=== PATIENT | male | born 1950 | race African-American/Black ===

== ENCOUNTER 2020-09-17 14:38 | Inpatient (IN) | payer OTHER ==
[~2020-09-17] VITALS: Ht 190.5 cm; Wt 90.7 kg
[2020-09-17] MEDS ORDERED: IV NS 0.9% 1,000 ML BAG IV ONE ×2 (15:00→17:30)
[2020-09-17] MEDS ORDERED: CLON1PAT2 TD (15:13)
[2020-09-17] MEDS ORDERED: METO25TA20 GT (15:13)
[2020-09-17] MEDS ORDERED: LACT10SO3 GT (15:13)
[2020-09-17] MEDS ORDERED: CHLO25TA2 GT (15:13)
[2020-09-17] MEDS ORDERED: ASCO-352 GT (15:13)
[2020-09-17] MEDS ORDERED: HYDR-4076 GT (15:13)
[2020-09-17] MEDS ORDERED: LACT100027 GT (15:13)
[2020-09-17] MEDS ORDERED: ZINC1CAP3 GT (15:13)
[2020-09-17] MEDS ORDERED: TRAM50TA2 GT (15:13)
[2020-09-17] MEDS ORDERED: FAMO-131 GT (15:13)
[2020-09-17] MEDS ORDERED: CHLO473M5 MM (15:13)
[2020-09-17] MEDS ORDERED: LISI20TA30 GT (15:13)
[2020-09-17] MEDS ORDERED: METF-440 GT (15:13)
[2020-09-17] MEDS ORDERED: IPRA4AER IH (15:13)
[2020-09-17] MEDS ORDERED: ATOR40TA GT (15:13)
[2020-09-17] MEDS ORDERED: AMIN30LI2 GT (15:13)
[2020-09-17] MEDS ORDERED: NA P133E RC (15:13)
[2020-09-17] MEDS ORDERED: ONDA4TAB5 GT (15:13)
[2020-09-17] MEDS ORDERED: HEPA50007 SQ (15:13)
[2020-09-17] MEDS ORDERED: CLON0.2T GT (15:13)
[2020-09-17] MEDS ORDERED: DOCU50LI GT (15:13)
[2020-09-17] MEDS ORDERED: MINO2.5T GT (15:13)
[2020-09-17] MEDS ORDERED: BISA10SU11 RC (15:13)
[2020-09-17] MEDS ORDERED: ACET-2605 GT (15:13)
[2020-09-17] MEDS ORDERED: ACET-868 GT (15:13)
[2020-09-17] MEDS ORDERED: MAGN400O6 GT (15:13)
[2020-09-17] MEDS ORDERED: NIFE20CA GT (15:13)
[2020-09-17] MEDS ORDERED: ASPI-869 GT (15:13)
[2020-09-17 15:20] LABS: BASOPHILS # (AUTO) 0.1 K/uL (0.0-0.2); BASOPHILS % (AUTO) 0.6 % (0.0-2.0); EOSINOPHILS % (AUTO) 1.3 % (0.0-6.0); HEMATOCRIT 32 % (39-51); HEMOGLOBIN 10.4 g/dL (13.5-17.5); LYMPHOCYTES # (AUTO) 1.4 K/uL (0.8-4.8); LYMPHOCYTES % (AUTO) 13.3 % (20.0-44.0); MEAN CORPUSCULAR HGB CONC 33 g/dl (31.0-36.0); MEAN CORPUSCULAR VOLUME 86 fL (80-96); MONOCYTES # (AUTO) 1.1 K/uL (0.1-1.30); MONOCYTES % (AUTO) 11.1 % (2.0-12.0); NEUTROPHILS # (AUTO) 7.6 K/uL (1.8-8.9); NEUTROPHILS % (AUTO) 73.7 % (43.0-81.0); PLATELET COUNT (AUTO) 284 K/uL (150-450); WHITE BLOOD COUNT (AUTO) 10.4 K/uL (4.3-11.0)
--- NOTE | 2020-09-17 15:45 | NUR ---
69 years old male vent dependent, total care sent to er for abnormal lab from [facility]. Sacrum wound noted,RUE PICC line patent lab result pending.
--- NOTE | 2020-09-17 15:49 | NUR ---
CAREGIVER/FAMILY, KATERIN SOLIZ, WANTS UPDATES AT [phone]
--- NOTE | 2020-09-17 16:09 | NUR ---
PT ASSIGNED TO ROOM 104-1
[2020-09-17 16:32] LABS: BILIRUBIN,URINE NEGATIVE (NEGATIVE); COLOR,URINE YELLOW (YELLOW); LEUKOCYTE ESTERASE ,URINE NEGATIVE (NEGATIVE); NITRITE, URINE NEGATIVE (NEGATIVE); PH,URINE 5.5 (5.0-8.0); PROTEIN,URINE NEGATIVE (NEGATIVE); UGLUCOSE NEGATIVE (NEGATIVE)
[2020-09-17 16:40] LABS: THYROID STIMULATING HORMONE 2.137 uIU/mL (0.358-3.74)
[2020-09-17 16:41] LABS: BACTERIA,URINE None seen /HPF (None Seen); RBC,URINE 0-2 /HPF (0-2); SQUAMOUS EPITHELIAL CELL,UR 0-2 /HPF (None Seen); URINE AMORPHOUS URATE Few /HPF (None Seen); WBC,URINE 0-2 /HPF (0-3)
[2020-09-17 17:02] LABS: CALCIUM, SERUM 8.7 mg/dL (8.5-10.1); CREATININE 1.5 mg/dL (0.6-1.3); POTASSIUM 5.7 mmol/L (3.5-5.1)
[2020-09-17 17:07] LABS: BILIRUBIN,DIRECT 0.2 mg/dL (0.0-0.2); BILIRUBIN,TOTAL 0.4 mg/dL (0.2-1.0); TOTAL PROTEIN, SERUM 7.8 g/dL (6.4-8.2)
--- NOTE | 2020-09-17 17:39 | NUR ---
TAKEN TO CT
--- NOTE | 2020-09-17 17:55 | NUR ---
received a call from the admitting, they spoke to Rosetta DE LA ROSA and patient will be going to [facility]. Will call back for transfer info.
--- NOTE | 2020-09-17 17:59 | NUR ---
patient returns to room from ct. unstable for transfer.
--- NOTE | 2020-09-17 18:07 | NUR ---
SPOKE TO DEBORA VALENZUELA TO TALK WITH NURSE ABOUT CLINICAL INFORMATION.
--- NOTE | 2020-09-17 18:10 | NUR ---
PER ESTRELLA VALENZUELA GAVE US AUTHORIZATION FOR ADMISSION, WILL CALL OUR ADMITTING DEPARTMENT TO RELAY INFORMATION.
[2020-09-17] MEDS ORDERED: SODIUM POLYSTYRENE SULFONATE 15 G/60 ML BOTTLE GT ONE (18:30)
--- NOTE | 2020-09-17 18:42 | NUR ---
SPOKE TO DR. MATTSON REGARDING PATIENT AND HE IS MAKING PATIENT STABLE FOR TRANSPORT. ESTRELLA VALENZUELA WILL CALL BACK WITH TRANSFER INFORMATION.
--- NOTE | 2020-09-17 18:45 | NUR ---
admission cancelled, patient will transfer to [facility] awaiting for bed.
--- NOTE | 2020-09-17 20:36 | NUR ---
Roxann cast in [facility] - 09/17/20 at 2038 by [facility] CALLED FOR COVID RESULTS FAX NUMBER: [phone]
--- NOTE | 2020-09-17 20:38 | NUR ---
ALPESH GONSALEZ CALLED FOR COVID RESULTS. FAX TO: [phone]
--- NOTE | 2020-09-17 21:24 | NUR ---
WINDYID SWABBED, SENT TO LAB.
[2020-09-17 21:48] LABS: CALCIUM, SERUM 8.3 mg/dL (8.5-10.1); CREATININE 1.2 mg/dL (0.6-1.3); POTASSIUM 5.6 mmol/L (3.5-5.1)
[2020-09-17] MEDS ORDERED: IV D5/0.45 NACL 1,000 ML IV ONE (22:00)
--- NOTE | 2020-09-17 22:15 | NUR ---
Call from [employer] Worker- Rosetta. Pt ok to be admitted to [facility] under Dr Carrillo.
[2020-09-17] MEDS ORDERED: BISACODYL SUPP (10 MG) 10 MG/SUPP.RECT SUPP.RECT RC PRN (23:00)
[2020-09-17] MEDS ORDERED: DEXTROSE 50%-WATER 50 ML DISP.SYRIN IV PRN (23:00)
--- NOTE | 2020-09-17 23:00 | NUR ---
CALLED RT FOR TRANSFERED.
--- NOTE | 2020-09-17 23:00 | NUR ---
ADMIT NOTE RECEIVED PATIENT FROM ER, TRANSFERRED TO ROOM 104. PATIENT IS OBTUNDED, OPENS EYES. ON TRACH TO [facility] VENT, BASSAM #9, AC 20, TV 500, FIO2 40%, AND PEEP OF 5. O2 SAT 100%. NO SIGNS OF DISTRESS. TELE MONITOR ON, SINUS TACHYCARDIA 12O. WITH G-TUBE, CLAMPED. CARTAGENA CATH DRAINING YELLOW TO ROSANNA URINE VIA GRAVITY. NATASHA PIC LINE PATENT AND RUNNING D5W @ 100ML/HR. SKIN ASSESSMENT DONE, NOTED WITH SACRUM WOUND. ALSO NOTED WITH BILATERAL UPPER EXTREMITY EDEMA +2. BED LOCKED AND IN LOWEST POSITION. CALL LIGHT WITHIN REACH. ALL NEEDS ANTICIPATED. Addendum: 09/18/20 at 0424 by GERARD SMITH RN PATIENT ON D5 1/2 NS @ 150ML/HR, NOT ON D5W.
--- NOTE | 2020-09-17 23:12 | NUR ---
REPORT GIVEN TO GERARD QUINONEZ FOR TANMAY
[2020-09-17] MEDS ORDERED: ONDANSETRON 4 MG TAB.RAPDIS GT PRN (23:30)
[2020-09-18] VITALS: BP 131/69
[2020-09-18] MEDS ORDERED: Medication Not On Formulary EA (Ipratropium/Albuterol Sulfate (Combivent Respimat 20-100 IH SCH
[2020-09-18] MEDS ORDERED: METOPROLOL TARTRATE 50 MG TABLET GT ONE
[2020-09-18] MEDS: ACETAMINOPHEN 650 MG/20.3 ML UDC GT PRN ×2 (00:31→04:52)
[2020-09-18] MEDS: BLOOD SUGAR DIAGNOSTIC 1 EACH STRIP IN SCH ×4 (00:32→17:17)
[2020-09-18] MEDS: INSULIN REGULAR, HUMAN 100 UNIT/ML 3 ML VIAL SQ PRN ×3 (00:35→17:17)
[2020-09-18] MEDS: IPRATROPIUM NEB FS 0.5 MG/2.5 ML AMPUL.NEB IH SCH ×4 (01:30→19:53)
[2020-09-18] MEDS: ALBUTEROL FS 2.5 MG/0.5 ML VIAL.NEB NEB SCH ×4 (01:30→19:53)
[2020-09-18 04:00] VITALS: BP 119/60
[2020-09-18] MEDS: IV 1/2NS 1000 ML 1,000 ML IV PRN ×2 (04:44→13:14)
--- NOTE | 2020-09-18 05:06 | NUR ---
NOTED WITH 101.6 TEMP, TYLENOL ADMINISTERED ORDERED. COOLING MEASURES RENDERED. CALL LIGHT WITHIN REACH.
--- NOTE | 2020-09-18 06:43 | NUR ---
RN NOTE PATIENT IS OBTUNDED, OPENS EYES TO VERBAL AND TACTILE STIMULI. ON TRACH TO [facility] VENT, BASSAM #9, AC 20, TV 500, FIO2 40%, AND PEEP OF 5. O2 SAT 100%. NO SIGNS OF DISTRESS. TELE MONITOR ON, SINUS TACHYCARDIA 100'S. WITH G-TUBE, CLAMPED. CARTAGENA CATH DRAINING YELLOW TO ROSANNA URINE VIA GRAVITY OUTPUT 1400. NATASHA PICC LINE PATENT AND NOW RUNNING 1/2 NS @ 125ML/HR. BED LOCKED AND IN LOWEST POSITION. CALL LIGHT WITHIN REACH. WILL ENDORSE TO AM SHIFT. Addendum: 09/18/20 at 0647 by GERARD SMITH RN RECHECK TEMP 99.5. CONTINUE COOLING MEASURES.
--- NOTE | 2020-09-18 07:05 | NUR ---
NOTIFIED DR. TWILA OLIVEROS OF PATIENT NOTED WITH CONSISTENT PVC'S AND BUNDLE BRANCH BLOCK, HEART RATE 105 WITH NO NEW ORDERS. ALSO CLARIFIED IF DR. MATTSON WANTS TO KEEP PT NPO AND SAID YES. AND CHANGE IV FLUIDS TO 1/2 NS @ 150ML/HR. NOTED AND CARRIED OUT.
[2020-09-18 07:16] LABS: BASOPHILS % (AUTO) 0.2 % (0.0-2.0); EOSINOPHILS % (AUTO) 0.2 % (0.0-6.0); HEMATOCRIT 31 % (39-51); LYMPHOCYTES # (AUTO) 0.8 K/uL (0.8-4.8); LYMPHOCYTES % (AUTO) 6.1 % (20.0-44.0); MEAN CORPUSCULAR HGB CONC 32 g/dl (31.0-36.0); MEAN CORPUSCULAR VOLUME 87 fL (80-96); MONOCYTES # (AUTO) 1.5 K/uL (0.1-1.30); MONOCYTES % (AUTO) 10.9 % (2.0-12.0); NEUTROPHILS # (AUTO) 11.2 K/uL (1.8-8.9); NEUTROPHILS % (AUTO) 82.6 % (43.0-81.0); PLATELET COUNT (AUTO) 243 K/uL (150-450); RED BLOOD CELL COUNT(AUTO) 3.59 MIL/uL (4.5-6.0); WHITE BLOOD COUNT (AUTO) 13.5 K/uL (4.3-11.0)
--- NOTE | 2020-09-18 07:45 | NUR ---
RN NOTE PATIENT IS CURRENTLY IN BED WITH HOB AT SEMI FOWLERS POSITION. PATIENT IS OBTUNDED. PATIENT IS ON TRACH/VENT WITH NO SIGNS OF LABORED BREATHING. PATIENT'S CARTAGENA IS IN PLACE. PATIENT'S GTUBE IS IN PLACE. NATASHA PICC LINE IS PATENT AND INTACT. BED IS LOCKED IN THE LOWEST POSITION, 3 GUARD RAILS RAISED, CALL [place] WITHIN REACH, AND ALL HOSPITAL SAFETY PRECAUTIONS ARE BEING FOLLOWED. WILL CONTINUE TO MONITOR THROUGHOUT SHIFT.
[2020-09-18 07:51] LABS: CALCIUM, SERUM 7.9 mg/dL (8.5-10.1); CREATININE 1.1 mg/dL (0.6-1.3); POTASSIUM 4.1 mmol/L (3.5-5.1)
--- NOTE | 2020-09-18 07:57 | NUR ---
WOUND CARE CONSULT: REVIEWED CHART, NURSING DOCUMENTATION AND PHOTO WHICH INDICATES SACRAL WOUND, PRESENT ON ADMISSION. SURGICAL CONSULT REQUESTED FROM DR CONTRERAS. RECOMMENDATIONS MADE FOR SKIN PROTECTION. DISCUSSED WITH NURSING STAFF. PT IS ON [place] ISOFLEX LOW AIRLOSS BED. MD IN AGREEMENT WITH PLAN OF CARE.
[2020-09-18 08:00] VITALS: BP 136/48
[2020-09-18 08:03] LABS: THYROID STIMULATING HORMONE 1.812 uIU/mL (0.358-3.74)
[2020-09-18] MEDS ORDERED: ASPIRIN EC 325 MG TABLET.DR PO SCH (09:00)
[2020-09-18] MEDS ORDERED: hydrALAZINE HCL 25 MG TABLET GT SCH (09:00)
[2020-09-18] MEDS ORDERED: ASPIRIN 325 MG TABLET PO SCH (09:30)
[2020-09-18] MEDS: ASCORBIC ACID 500 MG TABLET GT SCH (09:33)
[2020-09-18] MEDS: DOCUSATE SODIUM LIQ 100 MG/10 ML UDC GT SCH ×2 (09:33→16:42)
[2020-09-18] MEDS: LACTULOSE 10 G/15 ML UDC (PYXIS) GT SCH ×2 (09:33→16:42)
[2020-09-18] MEDS: ASPIRIN 325 MG TABLET GT SCH (09:34)
[2020-09-18] MEDS: FAMOTIDINE (20 MG) 20 MG TABLET GT SCH (09:35)
[2020-09-18] MEDS: METOPROLOL TARTRATE 25 MG TABLET GT SCH ×2 (09:35→16:43)
[2020-09-18] MEDS: ZINC SULFATE 220 MG CAPSULE GT SCH (09:35)
[2020-09-18] MEDS: METFORMIN 500 MG TABLET GT SCH ×2 (09:35→16:42)
[2020-09-18] MEDS: NIFEdipine (10MG) 10 MG CAPSULE GT SCH ×3 (09:35→16:42)
[2020-09-18] MEDS: HEPARIN SODIUM, PORCINE 5000 UNITS/1 ML VIAL SQ SCH ×2 (09:37→16:44)
[2020-09-18] MEDS: PROSTAT (PYXIS) 30 ML UDC GT SCH (09:54)
[2020-09-18 12:00] VITALS: BP 124/68
[2020-09-18] MEDS: JEVITY 1.2 CAL 1,000 ML BOTTLE GT PRN (13:15)
[2020-09-18 16:00] VITALS: BP 102/69
--- NOTE | 2020-09-18 19:30 | NUR ---
RN NOTE RECEIVED PATIENT IN BED. OBTUNDED, OPENS EYES. ON MECHANICAL VENT BASSAM #9, AC 20 TV 500 FIO2 40% PEEP 5. RESPIRATIONS ARE EVEN AND UNLABORED. NO S/S SOB NOTED. NO S/S PAIN NOTED. TELE MONITOR READS SINUS TACHYCARDIA HR 117. IN NO APPARENT DISTRESS. IV ACCESS IN NATASHA PIC LINE RUNNING 1/2NS@50MLHR. CARTAGENA CATHETER IS PRESENT, DRAINING TO GRAVITY, DIAZ IS ROSANNA. GTUBE IS PRESENT, RESIDUAL IS 50ML, FLUSHED WITH NO RESISTANCE, RUNNING JEVITY 1.2@70ML/HR. BED IS LOW AND LOCKED, HOB ELEVATED IN SEMI FOWLERS, SIDE RAILS UP X2, CALL LIGHT WITHIN REACH. WILL CONTINUE TO MONITOR THROUGHOUT SHIFT.
[2020-09-18 20:00] VITALS: BP 134/66
[2020-09-18] MEDS: SIMVASTATIN 20 MG TABLET PO SCH (21:19)
[2020-09-18] MEDS ORDERED: ATORVASTATIN 40 MG TABLET GT SCH (22:00)
[2020-09-19] VITALS: BP 131/64
[2020-09-19] MEDS: BLOOD SUGAR DIAGNOSTIC 1 EACH STRIP IN SCH ×4 (00:22→17:32)
[2020-09-19] MEDS: INSULIN REGULAR, HUMAN 100 UNIT/ML 3 ML VIAL SQ PRN ×4 (00:25→17:36)
[2020-09-19] MEDS: ACETAMINOPHEN 650 MG/20.3 ML UDC GT PRN (00:26)
[2020-09-19] MEDS: IPRATROPIUM NEB FS 0.5 MG/2.5 ML AMPUL.NEB IH SCH ×5 (01:30→20:54)
[2020-09-19] MEDS: ALBUTEROL FS 2.5 MG/0.5 ML VIAL.NEB NEB SCH ×5 (01:30→20:54)
--- NOTE | 2020-09-19 01:53 | NUR ---
0130 breathing tx not given due to high HR of 125 bmp. No resp distress/sob noted.
[2020-09-19] MEDS: JEVITY 1.2 CAL 1,000 ML BOTTLE GT PRN (03:49)
[2020-09-19] MEDS: IV 1/2NS 1000 ML 1,000 ML IV PRN (03:50)
[2020-09-19 04:00] VITALS: BP 136/69
--- NOTE | 2020-09-19 06:17 | NUR ---
RN NOTE PATIENT RESTING IN BED. OBTUNDED, REMAINS ON MECHANICAL VENT. NO CHANGES IN SETTINGS. NO RESP DISTRES. NO S/S PAIN. TELE MONITOR IS SINUS TACHYCARDIA HR 120S. NO DISTRESS. PATIENT TEMP AT 0400 100.4. ICE IS PLACED ON PATIENT. NATASHA PIC LINE RUNNING 1/2NS@50MLLHR. CARTAGENA CATHETER OUTPUT 1700ML. GTUBE RUNNING JEVITY 1.2@70ML/HR OFF AT 0900 AND ON AGAIN AT 1300. BED REMAINS LOW AND LOCKED, HOB ELEVATED IN SEMI FOWLERS, SIDE RAILS UP X2,WILL ENDORSE TO ONCOMING SHIFT.
[2020-09-19 06:29] LABS: BASOPHILS % (AUTO) 0.3 % (0.0-2.0); EOSINOPHILS % (AUTO) 0.7 % (0.0-6.0); HEMATOCRIT 29 % (39-51); HEMOGLOBIN 9.4 g/dL (13.5-17.5); LYMPHOCYTES # (AUTO) 0.9 K/uL (0.8-4.8); LYMPHOCYTES % (AUTO) 6.7 % (20.0-44.0); MEAN CORPUSCULAR HGB CONC 32 g/dl (31.0-36.0); MEAN CORPUSCULAR VOLUME 86 fL (80-96); MONOCYTES # (AUTO) 1.2 K/uL (0.1-1.30); NEUTROPHILS % (AUTO) 83.3 % (43.0-81.0); PLATELET COUNT (AUTO) 240 K/uL (150-450); RED BLOOD CELL COUNT(AUTO) 3.41 MIL/uL (4.5-6.0); WHITE BLOOD COUNT (AUTO) 13.2 K/uL (4.3-11.0)
[2020-09-19 06:45] LABS: ALBUMIN 1.7 g/dL (3.4-5.0); BILIRUBIN,TOTAL 0.6 mg/dL (0.2-1.0); CALCIUM, SERUM 8.1 mg/dL (8.5-10.1); CREATININE 0.9 mg/dL (0.6-1.3); MAGNESIUM 2.5 mg/dL (1.8-2.4); POTASSIUM 3.2 mmol/L (3.5-5.1)
[2020-09-19 08:11] VITALS: BP 129/72
[2020-09-19] MEDS ORDERED: POTASSIUM CHLORIDE 20 MEQ POWDER PACKET GT ONE ×2 (09:00)
[2020-09-19] MEDS: DOCUSATE SODIUM LIQ 100 MG/10 ML UDC GT SCH ×2 (09:05→16:20)
[2020-09-19] MEDS: LACTULOSE 10 G/15 ML UDC (PYXIS) GT SCH ×2 (09:05→16:20)
[2020-09-19] MEDS: METOPROLOL TARTRATE 25 MG TABLET GT SCH ×2 (09:05→16:25)
[2020-09-19] MEDS: ASPIRIN 325 MG TABLET GT SCH (09:05)
[2020-09-19] MEDS: ASCORBIC ACID 500 MG TABLET GT SCH (09:06)
[2020-09-19] MEDS: NIFEdipine (10MG) 10 MG CAPSULE GT SCH ×3 (09:06→16:24)
[2020-09-19] MEDS: FAMOTIDINE (20 MG) 20 MG TABLET GT SCH (09:06)
[2020-09-19] MEDS: METFORMIN 500 MG TABLET GT SCH ×2 (09:06→16:20)
[2020-09-19] MEDS: ZINC SULFATE 220 MG CAPSULE GT SCH (09:06)
[2020-09-19] MEDS: HEPARIN SODIUM, PORCINE 5000 UNITS/1 ML VIAL SQ SCH ×2 (09:07→16:23)
[2020-09-19] MEDS: PROSTAT (PYXIS) 30 ML UDC GT SCH (09:17)
[2020-09-19 12:17] VITALS: BP 107/65
--- NOTE | 2020-09-19 14:15 | NUR ---
PRELIM BLOOD CX POSITIVE RELAYED TO DR. MATTSON NEW ORDERS FOR ATB,PHARMACY NOTIFIED,ALSO OBTAINED VENOUS DOPPLER TO R/O DVT LEFT LE PER DR. MATTSON.borematic operator AWARE.
[2020-09-19] MEDS ORDERED: VANCOMYCIN 1.25 GM in IV D5W 250 ML IV ONE (15:00)
[2020-09-19 16:03] VITALS: BP 107/68
--- NOTE | 2020-09-19 18:24 | NUR ---
HOTEL OR MOTEL ROOM SERVICE SUPERVISOR CLOSING NOTE PATIENT CURRENTLY RESTING IN BED. OBTUNDED, OPENS EYES TO NAME. NO CHANGES IN VENT SETTINGS. NO SOB NOTED, NO DISTRESS/DISCOMFORT NOTED. NO PAIN NOTED. TELE MONITOR READS SINUS TACHY WITH HR @ 105. PATIENT TEMP STILL HIGH @ 99.6 - ICE PACKS SURROUNDING PATIENT. PICC LINE REMOVED AND MIDLINE INSERTED - RUNNING 1/2 NS @ 50ML/HR. PICC LINE TIP SENT FOR CULTURE. CARTAGENA CATHETER IN PLACE AND INTACT - OUTPUT 1350ML. GTUBE INTACT AND IN PLACE - RUNNING JEVITY 1.2@70ML/HR. TO BE TURNED OFF AT 0900 AND ON AGAIN AT 1300. SAFETY MEASURES IN PLACE. CALL LIGHT WITHIN REACH. WILL ENDORSE TO TERMINAL MAKE UP OPERATOR FOR TANMAY.
[2020-09-19 20:00] VITALS: BP 146/83
--- NOTE | 2020-09-19 20:00 | NUR ---
RN NOTE RECEIVED PT IN BED, OPEN EYES TO STIMULI. WITH TRACH ON VENT WITH SETTINGS OF AC 20 TV 500 FIO2 40% PEEP 5. NO S/SX OF DISTRESS NOTED. ON TELE MONITOR SHOWS SINUS TACH WITH HR OF 114 PT BASELINE. GT PATENT AND IN PLACE, WITH MINIMAL RESIDUALS. ON GT FEEDING OF JEVITY AT 70ML/HR. KEPT HOB ELEVATED. CARTAGENA DRAINING WELL. MIDLINE PATENT AND INTACT. 1/2 NS RUNNING AT 50ML.HR. WILL CONTINUE TO MONITOR. ALL SAFETY MEASURES IN PLACE.
[2020-09-19] MEDS: SIMVASTATIN 20 MG TABLET PO SCH (21:34)
--- NOTE | 2020-09-19 22:00 | NUR ---
RN NOTE BODY TEMP AT 99.
--- NOTE | 2020-09-19 23:57 | NUR ---
RN NOTE PT TOLERATING VENT SETTING. NO DISTRESS NOTED. CONTINUE ON GTFEEDING. REPORT GIVEN TO REAL FOR TANMAY.
[2020-09-20] MEDS: ACETAMINOPHEN 650 MG/20.3 ML UDC GT PRN (00:26)
[2020-09-20] MEDS: BLOOD SUGAR DIAGNOSTIC 1 EACH STRIP IN SCH ×5 (00:27→23:13)
[2020-09-20] MEDS: INSULIN REGULAR, HUMAN 100 UNIT/ML 3 ML VIAL SQ PRN ×4 (00:38→23:14)
--- NOTE | 2020-09-20 00:39 | NUR ---
GROCERY PACKER NOTE PT RUNNING FEVER 101, BODY COOLING MEARSURES APPLIED AND ALSO TYLENOL GIVEN ORDER, CONTINUE TO MONITOR THE PT. BS 151 2 UNITS OF REGULAR INSULIN GIVEN.
[2020-09-20] MEDS: IV 1/2NS 1000 ML 1,000 ML IV PRN ×2 (01:25→20:12)
--- NOTE | 2020-09-20 01:35 | NUR ---
BEDSIDE REPORT RECIEVED FROM REAL QUINONEZ. WILL ASSUME CARE.
--- NOTE | 2020-09-20 01:39 | NUR ---
TEMP RECHECK: PT AXILARY TEMP NOW 98.8 WILL CONT TO MONITOR.
[2020-09-20] MEDS: JEVITY 1.2 CAL 1,000 ML BOTTLE GT PRN (02:40)
[2020-09-20] MEDS ORDERED: VANCOMYCIN 1.25 GM in IV D5W 250 ML IV SCH (03:00)
[2020-09-20 04:00] VITALS: BP 135/83
[2020-09-20] MEDS: IPRATROPIUM NEB FS 0.5 MG/2.5 ML AMPUL.NEB IH SCH ×4 (04:10→19:30)
[2020-09-20] MEDS: ALBUTEROL FS 2.5 MG/0.5 ML VIAL.NEB NEB SCH ×4 (04:11→19:30)
--- NOTE | 2020-09-20 07:30 | NUR ---
RECEIVED REPORT FROM OBDULIA IBARRA FOR CONTINUATION OF CARE, PATIENT SLEEPING AT THIS TIME, ON MECHANICAL VENTILATOR, TOLERATING SETTINGS WELL, NO ACUTE DISTRESS NOTED, WILL CONTINUE TO MONITOR CLOSELY.
[2020-09-20 07:50] LABS: CALCIUM, SERUM 8.4 mg/dL (8.5-10.1); CREATININE 0.7 mg/dL (0.6-1.3); MAGNESIUM 2.4 mg/dL (1.8-2.4); POTASSIUM 3.9 mmol/L (3.5-5.1)
[2020-09-20 08:00] VITALS: BP 167/80
[2020-09-20] MEDS: METFORMIN 500 MG TABLET GT SCH ×2 (08:08→16:35)
[2020-09-20] MEDS: FAMOTIDINE (20 MG) 20 MG TABLET GT SCH (08:08)
[2020-09-20] MEDS: ZINC SULFATE 220 MG CAPSULE GT SCH (08:08)
[2020-09-20] MEDS: LACTULOSE 10 G/15 ML UDC (PYXIS) GT SCH ×2 (08:08→16:35)
[2020-09-20] MEDS: ASPIRIN 325 MG TABLET GT SCH (08:08)
[2020-09-20] MEDS: DOCUSATE SODIUM LIQ 100 MG/10 ML UDC GT SCH ×2 (08:08→16:35)
[2020-09-20] MEDS: PROSTAT (PYXIS) 30 ML UDC GT SCH (08:09)
[2020-09-20] MEDS: ASCORBIC ACID 500 MG TABLET GT SCH (08:09)
[2020-09-20] MEDS: HEPARIN SODIUM, PORCINE 5000 UNITS/1 ML VIAL SQ SCH ×2 (08:10→17:05)
[2020-09-20] MEDS: METOPROLOL TARTRATE 25 MG TABLET GT SCH (08:13)
[2020-09-20] MEDS: NIFEdipine (10MG) 10 MG CAPSULE GT SCH ×3 (08:15→16:34)
--- NOTE | 2020-09-20 08:23 | NUR ---
RT NOTE PT REMAINS MECHANICALLY VENTILATED VIA CUFFED TRACHEOSTOMY TUBE. CUFF INFLATED. TRACH TUBE MIDLINE AND SECURE. VENTILATOR SETTINGS PRESCRIBED. ALARMS SET PER PROTOCOL AND AUDIBLE. VENT PLUGGED IN TO RED OUTLET. AMBU BAG AND BACK UP TRACH AT BED SIDE. NO DISTRESS NOTED AT MOMENT. Addendum: 09/20/20 at 0825 by TONI AVILES RT Amended: Links added.
[2020-09-20] MEDS ORDERED: CEFT2VIA14 IV (08:52)
--- NOTE | 2020-09-20 08:54 | NUR ---
RN OPENING NOTE PT ON VENT/TRACH. VENT SETTINGS CHECKED AND VERIFIED. PT IS OBTUNDED AND ABLE TO OPEN EYES. NO SIGNS OF PAIN OR NAUSEA. ON MOTHER REPAIRER. NO EDEMA PRESENT. ON BEDREST WITH CARTAGENA CATHETER PRESENT. DRAINING WELL WITH CLEAR YELLOW FLUID. SACRAL WOUND PRESENT, PICTURES IN CHART, WOUND CARE ORDERED. ON GT WITH JEVITY RUNNING AT 20 ML/HR. NATASHA MIDLINE PRESENT AND FLUSHES WELL. LABS AND ORDERS REVIEWED. SAFETY MEASURES IN PLACE. SIDE RAILS RAISED. BED LOWERED. CALL LIGHT WITHIN REACH. WILL CONTINUE TO MONITOR.
--- NOTE | 2020-09-20 08:58 | NUR ---
ENDORSED PATIENT TO LUKASZ QUINONEZ FOR CONTINUATION OF CARE, PATIENT IN STABLE CONDITION.
[2020-09-20] MEDS ORDERED: SIMV10TA2 PO (08:59)
[2020-09-20] MEDS ORDERED: CLONIDINE HCL 0.1MG/24H PTWK 1 EA PATCH TD SCH (09:00)
[2020-09-20] MEDS ORDERED: CLONIDINE HCL 0.2MG/24H PTWK 1 EA PATCH TD SCH (09:00)
[2020-09-20] MEDS: CEFTRIAXONE 2 G in IV D5W 100 ML IV SCH (10:27)
[2020-09-20 12:00] VITALS: BP 152/81
[2020-09-20 16:00] VITALS: BP 152/81
--- NOTE | 2020-09-20 17:07 | NUR ---
RN NOTE PT DISCHARGED TO [facility]. REPORT GIVEN TO MALIHA QUINONEZ FOR TANMAY. MED RECON, EXITCARE EDUCATION, FACE SHEETS GIVEN TO SINGLE CORNER CUTTER. EXITCARE UTILIZED AND GIVEN TO CAREGIVER. PT V/S CHECKED PRIOR TO DISCHARGE. WOUND PICTURES TAKEN AND PLACED IN CHART. NO BELONGINGS ON PT. IV TO BE BROUGHT WITH PT FOR IV ABX. F/C BROUGHT WITH PT DUE TO OPEN SACRAL WOUND. IN STABLE CONDITION
--- NOTE | 2020-09-20 18:13 | NUR ---
PATIENT RESEND BY [facility] R/T TACHYCARDIA,DR. MATTSON MADE AWARE CANCELLED DISCHARGE.CM AND NURSING SUP AWARE.
--- NOTE | 2020-09-20 18:49 | NUR ---
RN CLOSING NOTE PT ON VENT/TRACH. VENT SETTINGS CHECKED AND VERIFIED. PT IS OBTUNDED AND ABLE TO OPEN EYES. NO SIGNS OF PAIN OR NAUSEA. ON SERVICE ADVOCATE CONTACT. NO EDEMA PRESENT. ON BEDREST WITH CARTAGENA CATHETER PRESENT. DRAINING WELL WITH CLEAR YELLOW FLUID. SACRAL WOUND PRESENT, PICTURES IN CHART, WOUND CARE ORDERED. ON GT WITH JEVITY RUNNING AT 70 ML/HR. NATASHA MIDLINE PRESENT AND FLUSHES WELL. LABS AND ORDERS REVIEWED. SAFETY MEASURES IN PLACE. SIDE RAILS RAISED. BED LOWERED. CALL LIGHT WITHIN REACH. REPORT TO BE GIVEN TO NIGHT NURSE FOR TANMAY.
--- NOTE | 2020-09-20 19:54 | NUR ---
RN NOTE RECEIVED PT IN BED, OPEN EYES TO STIMULI. FRIEND AT BEDSIDE. WITH TRACH ON VENT, NO S/SX OF DISTRESS NOTED. GT PATENT AND IN PLACE, WITH MINIMAL RESIDUALS. ON GT FEEDING OF JEVITY AT 70ML/HR. KEPT HOB ELEVATED. CARTAGENA DRAINING WELL. MIDLINE PATENT AND INTACT. WILL CONTINUE TO MONITOR. ALL SAFETY MEASURES IN PLACE.
[2020-09-20 20:00] VITALS: BP 157/79
[2020-09-20] MEDS: ACETAMINOPHEN 325 MG TABLET PO PRN (20:39)
--- NOTE | 2020-09-20 20:47 | NUR ---
RN NOTE PT APPEARS TO BE IN PAIN. HR IN 130S. TYLENOL GIVEN, WILL CONTINUE TO MONITOR.
--- NOTE | 2020-09-20 20:55 | NUR ---
RCVD PT TRACHED WITH SIZE PORTEX 9 ON [facility]. VENT WITH THE SETTINGS OF AC 20. VT 500, FIO2 40%, PEEP 5. CUFF INFLATED. TRACH TUBE MIDLINE AND SECURE. BREATHING TX GIVEN PER MD'S ORDER, NO ADVERSE REACTION NOTED. ALARMS SET PER PROTOCOL AND AUDIBLE. VENT PLUGGED IN TO RED OUTLET. AMBU BAG AND BACK UP TRACH AT BED SIDE. NO RESPIRATORY DISTRESS AT THIS TIME. WILL CONTINUE TO MONITOR PT T/O SHIFT.
[2020-09-20] MEDS: SIMVASTATIN 10 MG TABLET PO SCH (21:19)
--- NOTE | 2020-09-20 23:14 | NUR ---
rn note fsbs at 122. no insulin coverage given. continue on gt feeding.
[2020-09-21] VITALS: BP 149/84
[2020-09-21] MEDS: DILTIAZEM HCL 30 MG TABLET PO SCH ×4 (00:27→17:56)
[2020-09-21] MEDS: ALBUTEROL FS 2.5 MG/0.5 ML VIAL.NEB NEB SCH ×5 (01:30→20:28)
[2020-09-21] MEDS: IPRATROPIUM NEB FS 0.5 MG/2.5 ML AMPUL.NEB IH SCH ×4 (01:47→20:28)
[2020-09-21 04:00] VITALS: BP 146/84
[2020-09-21] MEDS: ACETAMINOPHEN 650 MG/20.3 ML UDC GT PRN (04:34)
--- NOTE | 2020-09-21 04:35 | NUR ---
RN NOTES PT HR IN 140S, TEMP AT 100. APPEARS TO BE IN PAIN, NO DISTRESS NOTED. TYLENOL GIVEN.
[2020-09-21] MEDS: BLOOD SUGAR DIAGNOSTIC 1 EACH STRIP IN SCH ×3 (05:48→17:57)
[2020-09-21] MEDS: INSULIN REGULAR, HUMAN 100 UNIT/ML 3 ML VIAL SQ PRN ×3 (05:49→18:10)
[2020-09-21 06:29] LABS: BASOPHILS # (AUTO) 0.1 K/uL (0.0-0.2); BASOPHILS % (AUTO) 0.4 % (0.0-2.0); EOSINOPHILS % (AUTO) 1.7 % (0.0-6.0); HEMATOCRIT 30 % (39-51); HEMOGLOBIN 9.5 g/dL (13.5-17.5); LYMPHOCYTES % (AUTO) 6.7 % (20.0-44.0); MEAN CORPUSCULAR HGB CONC 32 g/dl (31.0-36.0); MEAN CORPUSCULAR VOLUME 87 fL (80-96); MONOCYTES # (AUTO) 1.4 K/uL (0.1-1.30); MONOCYTES % (AUTO) 9.1 % (2.0-12.0); NEUTROPHILS # (AUTO) 12.3 K/uL (1.8-8.9); NEUTROPHILS % (AUTO) 82.1 % (43.0-81.0); PLATELET COUNT (AUTO) 291 K/uL (150-450); RED BLOOD CELL COUNT(AUTO) 3.44 MIL/uL (4.5-6.0)
[2020-09-21 06:44] LABS: CALCIUM, SERUM 8.5 mg/dL (8.5-10.1); CREATININE 0.7 mg/dL (0.6-1.3); POTASSIUM 4.4 mmol/L (3.5-5.1)
--- NOTE | 2020-09-21 06:53 | NUR ---
RN NOTE PT HR 115 NOW, SINUS TACH. NO S/SX OF DISTRESS NOTED. TEMP AT 99.2 NOW. PT TOLERATING VENT SETTINGS, KEPT HOB ELEVATED. SUCTIONED NEEDED. TOLERATED GT FEEDINGS, NO S/SX OF ASPIRATION NOTED. MINIMAL RESIDUALS. CARTAGENA DRAINING WELL. WOUND TX DONE ORDERED, TURNED AND REPOSITIONED. ALL SAFETY MEASURES MAINTAINED. WILL ENDORSE TO NEXT SHIFT NURSE FOR TANMAY.
--- NOTE | 2020-09-21 07:15 | NUR ---
RN NOTE PATIENT OBSERVED IN BED OBTUNDED BREATHING EVEN AND UNLABORED, ON TRACHEOSTOMY WITH MECHANICAL VENTILATOR TOLERATING WELL, ON TELE MONITOR SINUS TACHYCARDIA HR OF 112, WITH NATASHA MIDLINE WITH 1/2 NS @50CC/HR INFUSING WELL, PATIENT ON CARTAGENA CATHETER DRAINING VIA GRAVITY NO HEMATURIA NOTED, PATIENT ON GT FEEDING TOLERATING WELL, PATENT WITH 0 RESIDUAL, BED WHEELS LOCK, CALL LIGHT WITHIN REACH, SAFETY MEASURE OBSERVED, FOR ASPIRATION PRECAUTION HOB ELEVATED >30 DEGREES, WILL CONTINUE TO MONITOR
--- NOTE | 2020-09-21 07:46 | NUR ---
RT Pt received trached on mechanical ventilation with noted settings. Vent is plugged into red outlet, BVM, and spare trach by bedside. No SOB or respiratory distress noted. Addendum: 09/21/20 at 0849 by NEGAR GRAYSON RT Amended: Links added.
[2020-09-21 08:00] VITALS: BP 138/79
[2020-09-21] MEDS: DOCUSATE SODIUM LIQ 100 MG/10 ML UDC GT SCH ×2 (08:38→17:55)
[2020-09-21] MEDS: LACTULOSE 10 G/15 ML UDC (PYXIS) GT SCH ×2 (08:38→17:55)
[2020-09-21] MEDS: ASPIRIN 325 MG TABLET GT SCH (08:38)
[2020-09-21] MEDS: FAMOTIDINE (20 MG) 20 MG TABLET GT SCH (08:39)
[2020-09-21] MEDS: METFORMIN 500 MG TABLET GT SCH ×2 (08:39→17:56)
[2020-09-21] MEDS: ZINC SULFATE 220 MG CAPSULE GT SCH (08:39)
[2020-09-21] MEDS: ASCORBIC ACID 500 MG TABLET GT SCH (08:40)
[2020-09-21] MEDS: CEFTRIAXONE 2 G in IV D5W 100 ML IV SCH (08:58)
[2020-09-21] MEDS ORDERED: PROSOURCE / PROSTAT (PYXIS) 30 ML UDC GT SCH (09:00)
[2020-09-21] MEDS: HEPARIN SODIUM, PORCINE 5000 UNITS/1 ML VIAL SQ SCH ×2 (09:02→17:57)
--- NOTE | 2020-09-21 09:23 | NUR ---
RN NOTE PATIENT SEEN BY DR. MATTSON, SINUS TACHY OF 130 MD INCREASE CARDIZEM 30 MG VIA GT TO 60 MG VIA GT, ORDERS NOTED AND CARRIED OUT, WILL CONTINUE TO MONITOR PATIENT.
[2020-09-21] MEDS ORDERED: GLUCERNA 1.2 1,000 ML BOTTLE NG SCH (09:30)
[2020-09-21] MEDS: PROSOURCE / PROSTAT (PYXIS) 30 ML UDC GT SCH ×3 (09:30→17:36)
--- NOTE | 2020-09-21 09:37 | NUR ---
RN NOTE PROSTAT DUPLICATE ORDER, MD INCREASE FREQUENCY TO TID. PROSTAT GIVEN ORDERED.
--- NOTE | 2020-09-21 11:30 | NUR ---
RN NOTE PATIENT SEEN BY PT REHAB, PATIENT UNABLE TO SIT IN THE EDGE OF THE BED, PATIENT IS CONFUSED PER PT.
[2020-09-21 12:00] VITALS: BP 137/78
[2020-09-21] MEDS: GLUCERNA 1.2 1,000 ML BOTTLE PEG SCH (12:25)
--- NOTE | 2020-09-21 15:23 | NUR ---
RN NOTE PATIENT TO DISCHARGE TO [facility], DISCHARGE INSTRUCTION GIVEN, PATIENT BEING DISCHARGE WITH CARTAGENA CATHETER ORDERED. Addendum: 09/21/20 at 1525 by TIMI RIVERO RN WRONG ENTRY
[2020-09-21 16:00] VITALS: BP 133/78
--- NOTE | 2020-09-21 18:00 | NUR ---
RN NOTE OBSERVED PATIENT VISITOR CLEANING PATIENT LEFT EAR WOUND AND PEELING OFF SKIN, TOLD FAMILY MEMBER TO LET ME HELP HIM DO IT SO THAT HE STOPS, FAMILY STATED "HE IS NEARLY DONE" . DRESS LEFT EAR AND OFF LOADED.
[2020-09-21] MEDS: IV 1/2NS 1000 ML 1,000 ML IV PRN (18:59)
--- NOTE | 2020-09-21 19:04 | NUR ---
RN NOTE PATIENT OBSERVED IN BED OBTUNDED BREATHING EVEN AND UNLABORED, ON TRACHEOSTOMY WITH MECHANICAL VENTILATOR TOLERATING WELL, ON TELE MONITOR SINUS TACHYCARDIA HR OF 111, WITH NATASHA MIDLINE WITH 1/2 NS @50CC/HR INFUSING WELL, PATIENT ON CARTAGENA CATHETER DRAINING VIA GRAVITY NO HEMATURIA NOTED, PATIENT ON GT FEEDING TOLERATING WELL, PATENT WITH 0 RESIDUAL,PATIENT FOR LEFT TOE WOUND CONSULT, BED WHEELS LOCK, CALL LIGHT WITHIN REACH, SAFETY MEASURE OBSERVED, FOR ASPIRATION PRECAUTION HOB ELEVATED >30 DEGREES, WILL CONTINUE TO MONITOR, WILL ENDORSE TO NOC SHIFT. Addendum: 09/21/20 at 1907 by TIMI RIVERO RN RN NOTE PATIENT OBSERVED IN BED OBTUNDED BREATHING EVEN AND UNLABORED, ON TRACHEOSTOMY WITH MECHANICAL VENTILATOR TOLERATING WELL, ON TELE MONITOR SINUS TACHYCARDIA HR OF 111, WITH NATASHA MIDLINE WITH 1/2 NS @50CC/HR INFUSING WELL, PATIENT ON CARTAGENA CATHETER DRAINING VIA GRAVITY NO HEMATURIA NOTED, PATIENT ON GT FEEDING TOLERATING WELL, PATENT WITH 0 RESIDUAL,PATIENT FOR LEFT TOE WOUND CONSULT, BED WHEELS LOCK, CALL LIGHT WITHIN REACH, WOUND TREATMENT DONE ORDERED. SAFETY MEASURE OBSERVED, FOR ASPIRATION PRECAUTION HOB ELEVATED >30 DEGREES, WILL CONTINUE TO MONITOR, WILL ENDORSE TO NOC SHIFT.
--- NOTE | 2020-09-21 19:40 | NUR ---
RN NOTE PT RECEIVED IN BED. PT IS ON TRACH/VENT WITH SETTINGS AT AC 20, TV 500, FIO2 40, AND PEEP 5. TOLERATING VENT SETTINGS WELL. PT IS OBTUNDED, OPENS EYES. PT IS ON TELE MONITOR SHOWING ST IN 110s. CARTAGENA CATH NOTED. G-TUBE FLUSHED. GLUCERNA 1.2 RUNNING AT 70ML/HR. TOLERATING WELL, NO RESIDUAL NOTED. PT HAS RIGHT UPPER ARM MIDLINE INFUSING 1/2 NS AT 50 ML/HR. IV LINE FLUSHED, PATENT, AND INTACT. ALL SAFETY MEASURES IMPLEMENTED. BED LOCKED AND IN LOWEST POSITION. CALL LIGHT WITHIN REACH. BED ALARM ON. WILL CONTINUE TO MONITOR THROUGHOUT THE SHIFT.
[2020-09-21 20:00] VITALS: BP 159/79
[2020-09-21] MEDS: SIMVASTATIN 10 MG TABLET PO SCH (22:19)
[2020-09-21] MEDS ORDERED: CLONIDINE HCL 0.2MG/24H PTWK 1 EA PATCH TD SCH (23:00)
[2020-09-22] VITALS (8 sets, daily range): BP systolic 110–156; BP diastolic 68–87
[2020-09-22] MEDS: DILTIAZEM HCL 30 MG TABLET PO SCH ×5 (00:07→23:27)
[2020-09-22] MEDS: BLOOD SUGAR DIAGNOSTIC 1 EACH STRIP IN SCH ×5 (00:19→23:26)
--- NOTE | 2020-09-22 00:20 | NUR ---
RN NOTE PT BLOOD SUGAR WAS 116. NO INSULIN REQUIRED.
[2020-09-22] MEDS: ALBUTEROL FS 2.5 MG/0.5 ML VIAL.NEB NEB SCH ×4 (02:02→19:47)
[2020-09-22] MEDS: IPRATROPIUM NEB FS 0.5 MG/2.5 ML AMPUL.NEB IH SCH ×4 (02:02→19:47)
--- NOTE | 2020-09-22 05:51 | NUR ---
RN NOTE PT BLOOD SUGAR WAS 129. NO INSULIN REQUIRED.
[2020-09-22 06:45] LABS: BASOPHILS % (AUTO) 0.4 % (0.0-2.0); EOSINOPHILS % (AUTO) 2.1 % (0.0-6.0); HEMATOCRIT 29 % (39-51); HEMOGLOBIN 9.2 g/dL (13.5-17.5); LYMPHOCYTES % (AUTO) 8.5 % (20.0-44.0); MEAN CORPUSCULAR HGB CONC 32 g/dl (31.0-36.0); MEAN CORPUSCULAR VOLUME 87 fL (80-96); MONOCYTES % (AUTO) 7.2 % (2.0-12.0); NEUTROPHILS % (AUTO) 81.8 % (43.0-81.0); PLATELET COUNT (AUTO) 352 K/uL (150-450); RED BLOOD CELL COUNT(AUTO) 3.34 MIL/uL (4.5-6.0); WHITE BLOOD COUNT (AUTO) 14.1 K/uL (4.3-11.0)
[2020-09-22 06:46] LABS: BASOPHILS # (AUTO) 0.1 K/uL (0.0-0.2); LYMPHOCYTES # (AUTO) 1.2 K/uL (0.8-4.8); NEUTROPHILS # (AUTO) 11.5 K/uL (1.8-8.9)
[2020-09-22 06:52] LABS: CALCIUM, SERUM 8.5 mg/dL (8.5-10.1); CREATININE 0.6 mg/dL (0.6-1.3); POTASSIUM 4.3 mmol/L (3.5-5.1)
--- NOTE | 2020-09-22 06:59 | NUR ---
RN NOTE PT HEART RATE WENT TO 140-145. SPOKE WITH DR. MATTSON. PER MD ORDER, DR MATTSON ORDERED 50MG METOPROLOL Q8H ROUTINE VIA G-TUBE WITH PARAMETERS FOR HOLDING IF SBP<100 AND HR<60. WILL ADMINISTER PER MD ORDER.
[2020-09-22] MEDS: METOPROLOL TARTRATE 50 MG TABLET GT SCH ×3 (07:10→23:00)
[2020-09-22] MEDS ORDERED: CEFEPIME 1 GM in IV D5W 50 ML IV SCH (08:00)
--- NOTE | 2020-09-22 08:10 | NUR ---
TELE/RN OPENING NOTE RECEIVED PATIENT IN BED. PT IS ON TRACH/VENT WITH SETTINGS AT AC 20, TV 500, FIO2 40, AND PEEP 5. TOLERATING VENT SETTINGS WELL. PT IS OBTUNDED, OPENS EYES. PT IS ON TELE MONITOR SHOWING ST IN 110s. CARTAGENA CATH NOTED. G-TUBE FLUSHED. GLUCERNA 1.2 RUNNING AT 70ML/HR. TOLERATING WELL, NO RESIDUAL NOTED. PT HAS RIGHT UPPER ARM MIDLINE INFUSING 1/2 NS AT 50 ML/HR. IV LINE FLUSHED, PATENT, AND INTACT. ALL SAFETY MEASURES IMPLEMENTED. BED LOCKED AND IN LOWEST POSITION. CALL LIGHT WITHIN REACH. BED ALARM ON. WILL CONTINUE TO MONITOR THROUGHOUT THE SHIFT.
[2020-09-22] MEDS ORDERED: CEFEPIME 2 GM in IV D5W 100 ML IV SCH (09:00)
[2020-09-22] MEDS: LACTULOSE 10 G/15 ML UDC (PYXIS) GT SCH ×2 (09:17→17:30)
[2020-09-22] MEDS: ASCORBIC ACID 500 MG TABLET GT SCH (09:18)
[2020-09-22] MEDS: METFORMIN 500 MG TABLET GT SCH ×2 (09:18→17:31)
[2020-09-22] MEDS: ASPIRIN 325 MG TABLET GT SCH (09:18)
[2020-09-22] MEDS: ZINC SULFATE 220 MG CAPSULE GT SCH (09:18)
[2020-09-22] MEDS: FAMOTIDINE (20 MG) 20 MG TABLET GT SCH (09:18)
[2020-09-22] MEDS: DOCUSATE SODIUM LIQ 100 MG/10 ML UDC GT SCH ×2 (09:18→17:31)
[2020-09-22] MEDS: PROSOURCE / PROSTAT (PYXIS) 30 ML UDC GT SCH ×3 (09:19→17:32)
[2020-09-22] MEDS: HEPARIN SODIUM, PORCINE 5000 UNITS/1 ML VIAL SQ SCH ×2 (09:20→17:32)
--- NOTE | 2020-09-22 10:45 | NUR ---
WOUND CARE CONSULT: PT SEEN FOR RAISED LESION TO LEFT EAR AND DISCOLORATION TO LEFT DISTAL TOES. MSG LEFT FOR KEVIN REYNA CURRENTLY ON CASE AND WITH DR NOLEN FOR DPM CONSULT. RECOMMENDATIONS MADE FOR SKIN PROTECTION. DISCUSSED WITH NURSING STAFF. PT IS ON [place] ISOFLEX LOW AIRLOSS BED. M D IN AGREEMENT WITH PLAN OF CARE. Addendum: 09/22/20 at 1049 by FERNY MOSER WNDNU Amended: Links added.
[2020-09-22] MEDS: INSULIN REGULAR, HUMAN 100 UNIT/ML 3 ML VIAL SQ PRN (13:25)
[2020-09-22] MEDS: CEFTRIAXONE 2 G in IV D5W 100 ML IV SCH (18:21)
[2020-09-22] MEDS: IV 1/2NS 1000 ML 1,000 ML IV PRN (18:30)
--- NOTE | 2020-09-22 19:00 | NUR ---
RN NOTE RECEIVED PATIENT IN BED, RELATIVE/FAMILY AT BEDSIDE, OBTUNDED, IN NO S/SX OF ACUTE DISTRESS AT THIS TIME. ON TRACH TO MECHANICAL VENT WITH SETTINGS PRESCRIBED, SATURATION AT 100%, SR ON THE MONITOR, HR IS 89. NOTED NATASHA MIDLINE, ALL HUBS PATENT AND FLUSHING WELL, NO S/S OF INFECTION OR INFILTRATION WITH IV FLUID OF 1/2 NS INFUSING AT 50 ML/HR. NOTED GTUBE INTACT POSITIVE PLACEMENT NOTED, NO RESIDUAL, WITH TUBE FEEDING OF GLUCERNA 1.2 AT 70 ML/HR. BLADDER SCAN DONE, RESULTED 64 ML. SAFETY MEASURES IMPLEMENTED. PATIENT BED ALARM IS ON. HEAD OF BED ELEVATED. BED IS LOCKED, IN LOWEST POSITION AND SIDE RAILS UP. CALL LIGHT WITHIN REACH OF THE PATIENT. WILL CONTINUE TO MONITOR AND REASSESS FOR ANY CHANGES.
--- NOTE | 2020-09-22 19:16 | NUR ---
TELE/RN CLOSING NOTE PATIENT IN BED. PT IS ON TRACH/VENT WITH SETTINGS AT AC 20, TV 500, FIO2 40, AND PEEP 5. TOLERATING VENT SETTINGS WELL. PT IS OBTUNDED, OPENS EYES. PT IS ON TELE MONITOR SHOWING SR90. CARTAGENA CATH NOTED. G-TUBE FLUSHED. GLUCERNA 1.2 RUNNING AT 70ML/HR. TOLERATING WELL, NO RESIDUAL NOTED. PT HAS RIGHT UPPER ARM MIDLINE INFUSING 1/2 NS AT 50 ML/HR. IV LINE FLUSHED, PATENT, AND INTACT. ALL SAFETY MEASURES IMPLEMENTED. BED LOCKED AND IN LOWEST POSITION. CALL LIGHT WITHIN REACH. BED ALARM ON. WILL ENDORSE TO THE NEXT SHIFT FOR CONTINUITY OF CARE.
[2020-09-22] MEDS: SIMVASTATIN 10 MG TABLET PO SCH (22:49)
[2020-09-23] VITALS (7 sets, daily range): BP systolic 128–146; BP diastolic 68–83
[2020-09-23] MEDS: IPRATROPIUM NEB FS 0.5 MG/2.5 ML AMPUL.NEB IH SCH ×4 (01:10→20:07)
[2020-09-23] MEDS: ALBUTEROL FS 2.5 MG/0.5 ML VIAL.NEB NEB SCH ×4 (01:10→20:07)
[2020-09-23] MEDS: DILTIAZEM HCL 30 MG TABLET PO SCH ×4 (05:26→23:56)
[2020-09-23] MEDS: BLOOD SUGAR DIAGNOSTIC 1 EACH STRIP IN SCH ×3 (05:26→18:05)
[2020-09-23 06:46] LABS: BASOPHILS # (AUTO) 0.1 K/uL (0.0-0.2); BASOPHILS % (AUTO) 0.4 % (0.0-2.0); EOSINOPHILS % (AUTO) 2.1 % (0.0-6.0); HEMATOCRIT 28 % (39-51); HEMOGLOBIN 8.9 g/dL (13.5-17.5); LYMPHOCYTES # (AUTO) 1.1 K/uL (0.8-4.8); LYMPHOCYTES % (AUTO) 8.9 % (20.0-44.0); MEAN CORPUSCULAR HGB CONC 32 g/dl (31.0-36.0); MEAN CORPUSCULAR VOLUME 88 fL (80-96); MONOCYTES % (AUTO) 7.9 % (2.0-12.0); NEUTROPHILS # (AUTO) 10.2 K/uL (1.8-8.9); NEUTROPHILS % (AUTO) 80.7 % (43.0-81.0); PLATELET COUNT (AUTO) 367 K/uL (150-450); RED BLOOD CELL COUNT(AUTO) 3.18 MIL/uL (4.5-6.0); WHITE BLOOD COUNT (AUTO) 12.6 K/uL (4.3-11.0)
[2020-09-23 06:57] LABS: ALBUMIN 1.5 g/dL (3.4-5.0); BILIRUBIN,TOTAL 0.4 mg/dL (0.2-1.0); CALCIUM, SERUM 8.4 mg/dL (8.5-10.1); CREATININE 0.7 mg/dL (0.6-1.3); POTASSIUM 4.6 mmol/L (3.5-5.1); TOTAL PROTEIN, SERUM 6.8 g/dL (6.4-8.2)
[2020-09-23] MEDS: METOPROLOL TARTRATE 50 MG TABLET GT SCH ×3 (06:59→22:21)
--- NOTE | 2020-09-23 07:21 | NUR ---
RN NOTE PT REMAINS IN ROOM, NO SIGN OF ACUTE DISTRESS NOTED, ON TRACH TO VENT WITH SETTINGS PRESCRIBED, SATURATION AT 100%. GTUBE REMAINS PATENT, TUBE FEEDING OF GLUCERNA 1.2 RUNNING AT 70 ML/HR, NATASHA MIDLINE PATENT AND FLUSHING WELL, WITH IV FLUID 1/2 NS INFUSING AT 50 ML/HR. REPORT GIVEN TO HELIO QUINONEZ FOR TANMAY.
--- NOTE | 2020-09-23 07:25 | NUR ---
RN OPENING NOTES RECEIVED PT IN BED, OBTUNDED. NO SOB OR ANY S/SX OF ACUTE DISTRESS AT THIS TIME. ON TRACH TO MECHANICAL VENT TOLERATING VENT SETTINGS WELL. SATURATION @100%, SR ON THE MONITOR. NOTED NATASHA MIDLINE INTACT, PATENT AND FLUSHING WELL. IV OF 1/2 NS RUNNING @50 ML/HR. GTUBE INTACT. POSITIVE PLACEMENT NOTED, NO RESIDUAL, TUBE FEEDING OF GLUCERNA 1.2 @70 ML/HR, TOLERATING FEEDING WELL. SAFETY MEASURES IMPLEMENTED. CALL LIGHT WITHIN REACH. BED ALARM ON. HOB ELEVATED. BED LOCKED AND IN LOWEST POSITION WITH SIDE RAILS UP X3. WILL CONTINUE TO MONITOR.
[2020-09-23] MEDS: LACTULOSE 10 G/15 ML UDC (PYXIS) GT SCH ×2 (08:40→17:34)
[2020-09-23] MEDS: ZINC SULFATE 220 MG CAPSULE GT SCH (08:40)
[2020-09-23] MEDS: DOCUSATE SODIUM LIQ 100 MG/10 ML UDC GT SCH ×2 (08:40→17:34)
[2020-09-23] MEDS: ASPIRIN 325 MG TABLET GT SCH (08:40)
[2020-09-23] MEDS: FAMOTIDINE (20 MG) 20 MG TABLET GT SCH (08:40)
[2020-09-23] MEDS: METFORMIN 500 MG TABLET GT SCH ×2 (08:40→17:34)
[2020-09-23] MEDS: ASCORBIC ACID 500 MG TABLET GT SCH (08:40)
[2020-09-23] MEDS ORDERED: CEFT2VIA14 IV (08:41)
[2020-09-23] MEDS: HEPARIN SODIUM, PORCINE 5000 UNITS/1 ML VIAL SQ SCH ×2 (08:43→17:36)
[2020-09-23] MEDS ORDERED: METO50TA16 PO (08:44)
[2020-09-23] MEDS ORDERED: DILT-4 PO (08:44)
[2020-09-23] MEDS: PROSOURCE / PROSTAT (PYXIS) 30 ML UDC GT SCH ×3 (08:45→17:38)
[2020-09-23] MEDS: INSULIN REGULAR, HUMAN 100 UNIT/ML 3 ML VIAL SQ PRN (11:51)
--- NOTE | 2020-09-23 12:00 | NUR ---
RN NOTES BS OF 126, NO INSULIN COVERAGE.
[2020-09-23] MEDS: CEFTRIAXONE 2 G in IV D5W 100 ML IV SCH (17:34)
[2020-09-23] MEDS: IV 1/2NS 1000 ML 1,000 ML IV PRN (17:56)
[2020-09-23] MEDS: GLUCERNA 1.2 1,000 ML BOTTLE PEG SCH (17:57)
--- NOTE | 2020-09-23 18:00 | NUR ---
RN NOTES BS OF 105, NO INSULIN COVERAGE.
--- NOTE | 2020-09-23 18:52 | NUR ---
RN CLOSING NOTES NO SIGNIFICANT CHANGES THROUGHOUT THE SHIFT. NO SOB OR ANY DISTRESS. NO PAIN REPORTED AT THIS TIME. ALL DUE MEDS GIVEN. NEEDS ATTENDED. KEPT CLEAN AND COMFORTABLE. SAFETY MEASURES IN PLACE. WILL ENDORSE TO NIGHT RN FOR TANMAY.
--- NOTE | 2020-09-23 19:00 | NUR ---
RN NOTE RECEIVED PATIENT IN BED, OBTUNDED, IN NO S/SX OF ACUTE DISTRESS AT THIS TIME. ON TRACH TO MECHANICAL VENT WITH SETTINGS PRESCRIBED, SATURATION AT 100%, SR ON THE MONITOR, HR IS 82. NOTED NATASHA MIDLINE, ALL HUBS PATENT AND FLUSHING WELL, NO S/S OF INFECTION OR INFILTRATION WITH IV FLUID OF 1/2 NS INFUSING AT 50 ML/HR. NOTED GTUBE INTACT POSITIVE PLACEMENT NOTED, NO RESIDUAL, WITH TUBE FEEDING OF GLUCERNA 1.2 AT 70 ML/HR. SAFETY MEASURES IMPLEMENTED. PATIENT BED ALARM IS ON. HEAD OF BED ELEVATED. BED IS LOCKED, IN LOWEST POSITION AND SIDE RAILS UP. CALL LIGHT WITHIN REACH OF THE PATIENT. WILL CONTINUE TO MONITOR AND REASSESS FOR ANY CHANGES.
--- NOTE | 2020-09-23 19:30 | NUR ---
RN NOTE NOTED OPEN - SKIN POPPING SCAR ON L ARM. PHOTO TAKEN AND PLACED IN CHART. PENDING WOUND CONSULT
[2020-09-24] VITALS (7 sets, daily range): BP systolic 103–153; BP diastolic 60–99
[2020-09-24] MEDS: BLOOD SUGAR DIAGNOSTIC 1 EACH STRIP IN SCH ×4 (00:20→18:03)
[2020-09-24] MEDS: ALBUTEROL FS 2.5 MG/0.5 ML VIAL.NEB NEB SCH ×4 (01:50→19:09)
[2020-09-24] MEDS: IPRATROPIUM NEB FS 0.5 MG/2.5 ML AMPUL.NEB IH SCH ×4 (01:50→19:09)
[2020-09-24] MEDS: ACETAMINOPHEN 325 MG TABLET PO PRN (04:29)
[2020-09-24] MEDS: DILTIAZEM HCL 30 MG TABLET PO SCH ×3 (05:10→18:03)
[2020-09-24] MEDS: METOPROLOL TARTRATE 50 MG TABLET GT SCH ×2 (07:00→20:33)
--- NOTE | 2020-09-24 07:09 | NUR ---
RN NOTE PT REMAINS IN ROOM, NO SIGN OF ACUTE DISTRESS NOTED, ON TRACH TO VENT WITH SETTINGS PRESCRIBED, SATURATION AT 100%. GTUBE REMAINS PATENT, TUBE FEEDING OF GLUCERNA 1.2 RUNNING AT 70 ML/HR, NATASHA MIDLINE PATENT AND FLUSHING WELL, WITH IV FLUID 1/2 NS INFUSING AT 50 ML/HR. CONTINUOUS COOLING MEASURES PROVIDED. LATEST TEMP 99.8. REPORT GIVEN TO HELIO QUINONEZ FOR TANMAY.
[2020-09-24 07:16] LABS: BASOPHILS # (AUTO) 0.1 K/uL (0.0-0.2); BASOPHILS % (AUTO) 0.5 % (0.0-2.0); EOSINOPHILS % (AUTO) 2.6 % (0.0-6.0); HEMATOCRIT 26 % (39-51); HEMOGLOBIN 8.6 g/dL (13.5-17.5); LYMPHOCYTES % (AUTO) 8.6 % (20.0-44.0); MEAN CORPUSCULAR HGB CONC 33 g/dl (31.0-36.0); MEAN CORPUSCULAR VOLUME 87 fL (80-96); MONOCYTES # (AUTO) 0.8 K/uL (0.1-1.30); MONOCYTES % (AUTO) 7.5 % (2.0-12.0); NEUTROPHILS # (AUTO) 9.2 K/uL (1.8-8.9); NEUTROPHILS % (AUTO) 80.8 % (43.0-81.0); PLATELET COUNT (AUTO) 380 K/uL (150-450); RED BLOOD CELL COUNT(AUTO) 3.01 MIL/uL (4.5-6.0); WHITE BLOOD COUNT (AUTO) 11.3 K/uL (4.3-11.0)
[2020-09-24 07:56] LABS: ALBUMIN 1.5 g/dL (3.4-5.0); BILIRUBIN,TOTAL 0.3 mg/dL (0.2-1.0); CALCIUM, SERUM 8.5 mg/dL (8.5-10.1); CREATININE 0.7 mg/dL (0.6-1.3); POTASSIUM 4.6 mmol/L (3.5-5.1); TOTAL PROTEIN, SERUM 6.7 g/dL (6.4-8.2)
[2020-09-24] MEDS ORDERED: METOPROLOL TARTRATE 50 MG TABLET GT SCH (08:30)
[2020-09-24] MEDS: LACTULOSE 10 G/15 ML UDC (PYXIS) GT SCH ×2 (08:34→16:39)
[2020-09-24] MEDS: DOCUSATE SODIUM LIQ 100 MG/10 ML UDC GT SCH ×2 (08:34→16:39)
[2020-09-24] MEDS: METFORMIN 500 MG TABLET GT SCH ×2 (08:35→16:39)
[2020-09-24] MEDS: ASPIRIN 325 MG TABLET GT SCH (08:35)
[2020-09-24] MEDS: ASCORBIC ACID 500 MG TABLET GT SCH (08:37)
[2020-09-24] MEDS: FAMOTIDINE (20 MG) 20 MG TABLET GT SCH (08:37)
[2020-09-24] MEDS: ZINC SULFATE 220 MG CAPSULE GT SCH (08:37)
[2020-09-24] MEDS: PROSOURCE / PROSTAT (PYXIS) 30 ML UDC GT SCH ×3 (08:37→16:39)
[2020-09-24] MEDS: HEPARIN SODIUM, PORCINE 5000 UNITS/1 ML VIAL SQ SCH ×2 (08:40→16:47)
[2020-09-24] MEDS: INSULIN REGULAR, HUMAN 100 UNIT/ML 3 ML VIAL SQ PRN (12:09)
[2020-09-24] MEDS: CEFTRIAXONE 2 G in IV D5W 100 ML IV SCH (16:39)
[2020-09-24] MEDS: IV 1/2NS 1000 ML 1,000 ML IV PRN (16:55)
[2020-09-24] MEDS: GLUCERNA 1.2 1,000 ML BOTTLE PEG SCH (17:00)
--- NOTE | 2020-09-24 20:00 | NUR ---
RN NOTE RECEIVED PT IN WITH TRACH, ON [facility] VENT WITH SETTING OF AC 20 TV 500 FIO2 AT 40% PEEP 5. NO SIGNS OF DISTRESS NOTED. O2 SAT AT 100 %. PT OPEN EYES TO TOUCH STIMULI. ON TELE MONITORING, SINUS RHYTHM WITH HR OF 95. CARTAGENA DRAINING WELL. PT WITH GT,PATENT AND IN PLACE. NOTED WITH 200CC RESIDUAL, HELD FEEDING AT THIS TIME. KEPT HOB ELEVATED. MIDLINE PATENT AND INTACT, 1/2 NS RUNNING AT 50ML/HR. ALL SAFETY IN PLACE, WILL CONTINUE TO MONITOR.
--- NOTE | 2020-09-24 21:20 | NUR ---
GLASS FINISHER NOTES RECEIVED PATIENT AT THIS TIME. PATIENT OBTUNDED -- EYE AWAKENING TO TOUCH AND STIMULI. BED SIDE REPORT GIVEN BY ARIEL NICHOLAS RN. NO S/S OF DISTRESS. BREATHING EVEN AND UNLABORED. PATIENT RELAXED AND SCORING 0 FOR PAIN VIA FLACC. TRACH P #9 WITH SETTINGS OF AC 20, TV 500, FIO2 40, PEEP 5. SATURATION OF 100%. V/S FOLLOWS: 150/90, P- 97 BPM, T- 97.9, WT- [address]: BED IN LOWEST LOCKED POSITION, SIDE RAILS UP X3. PATIENT NOTED TO SWOLLEN IN ALL 4 EXTREMITIES. DTI IN BILA. EARS AND SACRUM. BLACK ESCHAR NOTED ON L. GREAT TOE AND L. SECOND TOE. PICTURES WILL BE TAKEN AND CHARTED. WILL CONTINUE CARE AND MONITOR PATIENT.
--- NOTE | 2020-09-24 21:20 | NUR ---
RN NOTE TRANSFERRED PT TO 314-1, REPORT GIVEN TO SALVATORE AT BEDSIDE. NO SIGNIFICANT CHANGES NOTED. GT FEEDING KEPT ON HOD. NO DISTRESS NOTED. CONTINUE WITH VENT.
[2020-09-25] VITALS: BP 152/87
--- NOTE | 2020-09-25 | NUR ---
HISTORICAL INTERPRETER NOTES PATIENT BLOOD SUGAR 109.
[2020-09-25] MEDS: BLOOD SUGAR DIAGNOSTIC 1 EACH STRIP IN SCH ×4 (00:06→17:25)
[2020-09-25] MEDS: DILTIAZEM HCL 30 MG TABLET PO SCH ×4 (00:09→18:00)
[2020-09-25] MEDS: IPRATROPIUM NEB FS 0.5 MG/2.5 ML AMPUL.NEB IH SCH ×3 (01:50→13:57)
[2020-09-25] MEDS: ALBUTEROL FS 2.5 MG/0.5 ML VIAL.NEB NEB SCH ×3 (01:50→13:57)
[2020-09-25 04:00] VITALS: BP 152/71
--- NOTE | 2020-09-25 05:51 | NUR ---
CONTROL MANAGER NOTES REPOSITIONING: OFF LOADING THE RIGHT SIDE. PATIENT HAVING A LOT OF SPUTUM/ SALIVA HENCE TURNED THE HEAD ON THE LEFT SIDE. SPO2 100 %.
--- NOTE | 2020-09-25 05:57 | NUR ---
PATIENT RECEIVED ON TRACH TO VENT WITH SETTINGS OF AC 20, 500 Vt, 40%, +5. SUCTIONED FOR MINIMAL, THIN, YELLOW SECRETIONS. GIVEN IN-LINE TREATMENTS WITH NO ADVERSE REACTIONS. AMBU BAG AT BEDSIDE. VENT AND PULSE OXIMETER ALARMS AUDIBLE AND VISIBLE. Addendum: 09/25/20 at 0558 by JONNY OROZCO RT Amended: Links added.
--- NOTE | 2020-09-25 06:05 | NUR ---
ELECTRICAL PROSPECTING SUPERVISOR NOTES PATIENT 0600 BLOOD SUGAR 104. NO INSULIN GIVEN.
--- NOTE | 2020-09-25 07:31 | NUR ---
GRAPHIC ART SALES REPRESENTATIVE NOTES REPORT GIVEN TO GATO FOR CONTINUITY OF CARE
--- NOTE | 2020-09-25 07:52 | NUR ---
BROADCAST OPERATIONS DIRECTOR OPENING NOTES RECEIVED PATIENT IN BED, OPEN EYES, OBTUNDED. PATIENT ON VENT SETTINGS TOLERATING WELL AT THIS TIME; NO SOB PRESENT. TELE MONITOR WITH A CURRENT READING OF ST 109. NO S/S OF PAIN SUCH MOANING, GUARDING OR FACIAL GRIMACING NOTED. NATASHA MIDLINE INTACT RUNNING NS @ 50 MLS/HR. G-TUBE INTACT RUNNING GLUCERNA @ 70 MLS/HR. CARTAGENA CATH PRESENT DRAINING YELLOW URINE. SAFETY PRECAUTIONS IN PLACE; BED IN LOW POSITION AND LOCKED, HOB ELEVATED, RAILS UP X2, CALL LIGHT WITHIN REACH. WILL CONTINUE TO MONITOR PATIENT.
[2020-09-25 07:55] LABS: CALCIUM, SERUM 8.5 mg/dL (8.5-10.1); CREATININE 0.6 mg/dL (0.6-1.3); POTASSIUM 4.5 mmol/L (3.5-5.1)
[2020-09-25 08:32] VITALS: BP 159/69
[2020-09-25] MEDS ORDERED: HYDR-4076 PO (09:04)
[2020-09-25] MEDS ORDERED: CEFT2VIA14 IV (09:04)
[2020-09-25 09:09] LABS: BASOPHILS # (AUTO) 0.1 K/uL (0.0-0.2); BASOPHILS % (AUTO) 0.6 % (0.0-2.0); EOSINOPHILS % (AUTO) 1.9 % (0.0-6.0); HEMATOCRIT 29 % (39-51); HEMOGLOBIN 9.2 g/dL (13.5-17.5); LYMPHOCYTES # (AUTO) 1.2 K/uL (0.8-4.8); LYMPHOCYTES % (AUTO) 9.9 % (20.0-44.0); MEAN CORPUSCULAR HGB CONC 32 g/dl (31.0-36.0); MEAN CORPUSCULAR VOLUME 86 fL (80-96); MONOCYTES # (AUTO) 0.9 K/uL (0.1-1.30); MONOCYTES % (AUTO) 7.6 % (2.0-12.0); NEUTROPHILS # (AUTO) 9.5 K/uL (1.8-8.9); PLATELET COUNT (AUTO) 414 K/uL (150-450); RED BLOOD CELL COUNT(AUTO) 3.34 MIL/uL (4.5-6.0); WHITE BLOOD COUNT (AUTO) 11.8 K/uL (4.3-11.0)
[2020-09-25] MEDS: ASPIRIN 325 MG TABLET GT SCH (09:39)
[2020-09-25] MEDS: METFORMIN 500 MG TABLET GT SCH ×2 (09:39→16:23)
[2020-09-25] MEDS: DOCUSATE SODIUM LIQ 100 MG/10 ML UDC GT SCH ×2 (09:39→16:23)
[2020-09-25] MEDS: FAMOTIDINE (20 MG) 20 MG TABLET GT SCH (09:39)
[2020-09-25] MEDS: LACTULOSE 10 G/15 ML UDC (PYXIS) GT SCH ×2 (09:39→16:23)
[2020-09-25] MEDS: ZINC SULFATE 220 MG CAPSULE GT SCH (09:40)
[2020-09-25] MEDS: ASCORBIC ACID 500 MG TABLET GT SCH (09:40)
[2020-09-25] MEDS: METOPROLOL TARTRATE 50 MG TABLET GT SCH (09:40)
[2020-09-25] MEDS: PROSOURCE / PROSTAT (PYXIS) 30 ML UDC GT SCH ×3 (09:51→16:23)
[2020-09-25 10:20] LABS: BAND % (MANUAL) 4 % (0.0-5.0); EOSINOPHILS % (MANUAL) 4 % (0-4); LYMPHOCYTES % (MANUAL) 12 % (16-48); MONOCYTES % (MANUAL) 6 % (0-11.0); MYELOCYTES % 1 % (0-0); NEUTROPHILS % (MANUAL) 73 (42-76)
[2020-09-25] MEDS: hydrALAZINE HCL 25 MG TABLET PO SCH ×2 (10:57→14:42)
[2020-09-25] MEDS: CEFTRIAXONE 2 G in IV D5W 100 ML IV SCH (16:27)
[2020-09-25 16:48] VITALS: BP 135/82
--- NOTE | 2020-09-25 18:17 | NUR ---
TUBE WASHERSENIOR INFORMATION DEVELOPER NOTES PATIENT DISCHARGED BACK TO SNF IN MEDICALLY STABLE CONDITION. PATIENT ON VENT, TOLERATING WELL. DISCHARGE PAPERWORK DONE AND SIGNED BY 2 RNs DUE TO PATIENT BEING OBTUNDED. BELONGINGS ACCOUNTED FOR AND FORM SIGNED WELL. PATIENT LEFT WITH NATASHA MIDLINE IN ORDER TO CONTINUE IV ANTIBIOTICS AT THE FACILITY. CALLED FACILITY AND REPORT GIVEN TO DEVI HARDY. PATIENT LEFT THE FLOOR VIA GURNEY ACCOMPANIED BY 2 tractor trailer mechanic AND AN RT AT 1800.
== END 2020-09-25 18:15 | DRG 314 ==
LOC: ER 14:45 → TELE1 22:22 → TELE-TD 09-22 22:21 → TELE1 09-24 14:51 → TELE 09-24 21:43
PROVIDERS: ADMIT Internal Medicine; ATTEND Internal Medicine
PROC: 5A1955Z Respiratory Ventilation, Greater than 96 Consecutive Hours (ICD-10-PCS; principal; 2020-09-17)
PROC: 05HB33Z Insertion of Infusion Device into Right Basilic Vein, Percutaneous Approach (ICD-10-PCS; 2020-09-19)
DX: T80.211A Bloodstream infection due to central venous catheter, initial encounter (principal); N17.0 Acute kidney failure with tubular necrosis; A41.1 Sepsis due to other specified staphylococcus; M62.82 Rhabdomyolysis; J96.10 Chronic respiratory failure, unspecified whether with hypoxia or hypercapnia; Z99.11 Dependence on respirator [ventilator] status; K92.2 Gastrointestinal hemorrhage, unspecified; E11.52 Type 2 diabetes mellitus with diabetic peripheral angiopathy with gangrene; I96 Gangrene, not elsewhere classified; E86.0 Dehydration; I10 Essential (primary) hypertension; E78.5 Hyperlipidemia, unspecified; E87.5 Hyperkalemia; Z86.73 Personal history of transient ischemic attack (TIA), and cerebral infarction without residual deficits; Z93.1 Gastrostomy status; R13.10 Dysphagia, unspecified; Z93.0 Tracheostomy status; Z20.822 Contact with and (suspected) exposure to COVID-19; Z79.84 Long term (current) use of oral hypoglycemic drugs; Z79.01 Long term (current) use of anticoagulants; Z79.51 Long term (current) use of inhaled steroids; Z79.82 Long term (current) use of aspirin; Z79.899 Other long term (current) drug therapy; D64.9 Anemia, unspecified; L89.156 Pressure-induced deep tissue damage of sacral region; L89.326 Pressure-induced deep tissue damage of left buttock; L89.316 Pressure-induced deep tissue damage of right buttock; Z87.891 Personal history of nicotine dependence; L97.529 Non-pressure chronic ulcer of other part of left foot with unspecified severity
CPT/HCPCS: 31720; 36410; 36415; 70450-TC; 71045-TC; 76770-TC; 80048-TC; 80053-TC; 80076-TC; 80202-TC; 81001; 82550-TC; 82553; 82962-TC; 83605-TC; 83735-TC; 83880; 84443-TC; 84484-TC; 85025-TC; 87040-TC; 87070-TC; 87081-TC; 87086-TC; 93971-TC; 94003-TC; 94760-TC; 94762-TC; 94799-TC; 99082-TC; A4623; A6253; A7526; C9803; G0378; J0692; J0696; J1644; J1815; J3370; J3490; J7030; J7060; U0003

== ENCOUNTER 2020-10-31 20:22 | Inpatient (IN) | payer OTHER ==
[~2020-10-31] VITALS: Ht 185.4 cm; Wt 88.9 kg
[~2020-10-31 20:22] MED LIST: ACET-2605 GT; ACET-868 GT; AMIN30LI2 GT; ASCO-352 GT; ASPI-869 GT; BISA10SU11 RC; CEFT2VIA14 IV; CHLO473M5 MM; CLON1PAT2 TD; DILT-4 PO; DOCU50LI GT; FAMO-131 GT; HEPA50007 SQ; HYDR-4076 PO; IPRA4AER IH; LACT100027 GT; LACT10SO3 GT; MAGN400O6 GT; METF-440 GT; METO50TA16 PO; NA P133E RC; ONDA4TAB5 GT; TRAM50TA2 GT; ZINC1CAP3 GT
[2020-10-31] MEDS ORDERED: PIPERACILLIN /TAZOBACTAM 3.375 G in IV D5W 50 ML IV ONE (21:00)
[2020-10-31] MEDS ORDERED: IV NS 0.9% 1,000 ML BAG IV ONE (21:00)
[2020-10-31] MEDS ORDERED: VANCOMYCIN 1 GM in IV D5W 250 ML IV ONE (21:00)
--- NOTE | 2020-10-31 21:05 | NUR ---
PATIENT BIBRA FROM SNF C/O LABORED BREATHING FOR THE PAST TWO DAYS AND IRREGULAR PULSE RATE. PT + NECTROTIC TOES + HEAL ULCER + EDEMA +VENT DEPENDENT. PT TOLERATING VENT SETTING WELL, PATIENT OPEN EYES, CONNECTED TO CARDIAC AND POX MONITOR.
[2020-10-31] MEDS ORDERED: VANCOMYCIN 1 GM VIAL ONE (21:13)
[2020-10-31] MEDS ORDERED: PIPERACILLIN /TAZOBACTAM 3.375 G VIAL IV ONE (21:13)
--- NOTE | 2020-10-31 21:15 | NUR ---
URINE COLLECTED AND SENT TO LAB
[2020-10-31 21:56] LABS: BILIRUBIN,URINE NEGATIVE (NEGATIVE); COLOR,URINE YELLOW (YELLOW); LEUKOCYTE ESTERASE ,URINE MODERATE (NEGATIVE); NITRITE, URINE POSITIVE (NEGATIVE); PH,URINE 8.5 (5.0-8.0); PROTEIN,URINE TRACE mg/dl (NEGATIVE); UGLUCOSE NEGATIVE (NEGATIVE)
[2020-10-31 22:08] LABS: BACTERIA,URINE Many /HPF (None Seen); MUCUS,URINE Moderate /LPF (None Seen); SQUAMOUS EPITHELIAL CELL,UR Few /HPF (None Seen); TRIPLE PHOSPHATE CRYSTAL,UR Many /HPF (None Seen); URINE AMORPHOUS PHOSPHATES Many /HPF (None Seen)
[2020-10-31 22:12] LABS: BASOPHILS # (AUTO) 0.1 K/uL (0.0-0.2); BASOPHILS % (AUTO) 0.8 % (0.0-2.0); EOSINOPHILS % (AUTO) 1.3 % (0.0-6.0); HEMATOCRIT 26 % (39-51); HEMOGLOBIN 7.6 g/dL (13.5-17.5); LYMPHOCYTES # (AUTO) 2.5 K/uL (0.8-4.8); LYMPHOCYTES % (AUTO) 16.2 % (20.0-44.0); MEAN CORPUSCULAR HGB CONC 30 g/dl (31.0-36.0); MEAN CORPUSCULAR VOLUME 84 fL (80-96); MONOCYTES % (AUTO) 6.2 % (2.0-12.0); NEUTROPHILS # (AUTO) 11.8 K/uL (1.8-8.9); NEUTROPHILS % (AUTO) 75.5 % (43.0-81.0); PLATELET COUNT (AUTO) 623 K/uL (150-450); RED BLOOD CELL COUNT(AUTO) 3.04 MIL/uL (4.5-6.0); WHITE BLOOD COUNT (AUTO) 15.7 K/uL (4.3-11.0)
[2020-10-31 22:22] LABS: CARBON DIOXIDE 26 mmol/L (21-32); CHLORIDE 110 mmol/L (98-107); CREATININE 0.8 mg/dL (0.6-1.3); GLUCOSE 123 mg/dL (74-106); POTASSIUM 4.8 mmol/L (3.5-5.1); SODIUM SERUM 147 mmol/L (136-145); UREA NITROGEN, BLOOD 45 mg/dL (7-18)
[2020-10-31 22:28] LABS: ALANINE AMINOTRANSFERASE 22 U/L (12-78); ALBUMIN 1.8 g/dL (3.4-5.0); ALKALINE PHOSPHATASE 92 U/L (46-116); ASPARTATE AMINOTRANSFERASE 27 U/L (15-37); BILIRUBIN,DIRECT 0.1 mg/dL (0.0-0.2); BILIRUBIN,TOTAL 0.2 mg/dL (0.2-1.0); TOTAL PROTEIN, SERUM 8.5 g/dL (6.4-8.2)
--- NOTE | 2020-11-01 00:11 | NUR ---
faxed clinicals to cm, Iris
--- NOTE | 2020-11-01 00:34 | NUR ---
dr wynn called for peer to peer
[2020-11-01] MEDS ORDERED: ACETAMINOPHEN ES 500 MG TABLET ONE (00:38)
[2020-11-01] MEDS ORDERED: ACETAMINOPHEN 325 MG TABLET MC ONE (01:00)
--- NOTE | 2020-11-01 01:30 | NUR ---
called house sup for bed
--- NOTE | 2020-11-01 01:34 | NUR ---
f/u with lab about covid results, machine is down
--- NOTE | 2020-11-01 02:13 | NUR ---
REPORT GIVEN TO NURSE ANOOP
--- NOTE | 2020-11-01 02:58 | NUR ---
PATIENT TRANSFERRED UNDER ACLS RM 113
[2020-11-01 03:00] VITALS: BP 160/77
[2020-11-01] MEDS ORDERED: DEXTROSE 50%-WATER 50 ML DISP.SYRIN IV PRN (03:30)
[2020-11-01] MEDS ORDERED: GLUCERNA 1.5 1,000 ML BOTTLE GT PRN (03:30)
[2020-11-01] MEDS: IV 1/2NS 1000 ML 1,000 ML IV PRN (04:18)
[2020-11-01] MEDS ORDERED: PIPERACILLIN /TAZOBACTAM 3.375 G in IV D5W 50 ML IV ONE (05:00)
[2020-11-01] MEDS ORDERED: PIPERACILLIN /TAZOBACTAM 3.375 G VIAL IV ONE (05:07)
[2020-11-01] MEDS: BLOOD SUGAR DIAGNOSTIC 1 EACH STRIP IN SCH ×4 (06:02→23:45)
[2020-11-01] MEDS: GLUCERNA 1.2 1,000 ML BOTTLE GT PRN (06:02)
[2020-11-01 07:20] LABS: BASOPHILS # (AUTO) 0.1 K/uL (0.0-0.2); BASOPHILS % (AUTO) 0.6 % (0.0-2.0); EOSINOPHILS % (AUTO) 0.7 % (0.0-6.0); HEMATOCRIT 25 % (39-51); HEMOGLOBIN 7.8 g/dL (13.5-17.5); LYMPHOCYTES # (AUTO) 2.1 K/uL (0.8-4.8); LYMPHOCYTES % (AUTO) 15.1 % (20.0-44.0); MEAN CORPUSCULAR HGB CONC 31 g/dl (31.0-36.0); MEAN CORPUSCULAR VOLUME 84 fL (80-96); MONOCYTES % (AUTO) 7.3 % (2.0-12.0); NEUTROPHILS # (AUTO) 10.6 K/uL (1.8-8.9); NEUTROPHILS % (AUTO) 76.3 % (43.0-81.0); PLATELET COUNT (AUTO) 594 K/uL (150-450); RED BLOOD CELL COUNT(AUTO) 3.03 MIL/uL (4.5-6.0)
--- NOTE | 2020-11-01 07:29 | NUR ---
RN OPENING NOTES; RECEIVED PT IN BED, PT IS OBTUNDED. EDEMA NOTED BUE. PT ON CARTAGENA, PATENT WITH YELLOW COLOR URINE. PT ON TRACH# p8. MULTIPLE SKIN WOUNDS, PLEASE SEE CHART FOR PICTURES. PT ON GLUCERNA 1.5 @80ML/HR. IV ACCESS NOTED ON R HAND #20 1/2 NS @75ML/HR. PT SEEMS TO BE COMFORTABLE, WITH NO SIGNS OF PAIN. 0 DISTRESS NOTED. WILL CONTINUE TO MONITOR.
[2020-11-01] MEDS ORDERED: ACETAMINOPHEN 650 MG/20.3 ML UDC GT PRN ×2 (07:30)
[2020-11-01] MEDS ORDERED: MAGNESIUM HYDROXIDE 30 ML UDC GT PRN (07:30)
[2020-11-01] MEDS ORDERED: TRAMADOL HCL 50 MG TABLET GT PRN (07:30)
[2020-11-01] MEDS ORDERED: BISACODYL SUPP (10 MG) 10 MG/SUPP.RECT SUPP.RECT RC PRN (07:30)
[2020-11-01] MEDS ORDERED: NA PHOS,M-B/NA PHOS,DI-BA 1 EA ENEMA RC PRN (07:30)
[2020-11-01 07:46] LABS: CALCIUM, SERUM 8.5 mg/dL (8.5-10.1); CREATININE 0.8 mg/dL (0.6-1.3); POTASSIUM 4.1 mmol/L (3.5-5.1)
[2020-11-01 08:00] VITALS: BP 143/77
[2020-11-01] MEDS ORDERED: JEVITY 1.2 CAL 1,000 ML BOTTLE GT PRN (08:00)
[2020-11-01] MEDS ORDERED: ONDANSETRON HCL 4 MG/5 ML SOLUTION GT PRN (08:00)
[2020-11-01] MEDS ORDERED: DILT30TA14 GT (08:08)
[2020-11-01] MEDS ORDERED: IPRA4AER IH (08:08)
[2020-11-01] MEDS ORDERED: HYDR-4076 GT (08:08)
[2020-11-01] MEDS ORDERED: METO25TA20 GT (08:08)
[2020-11-01] MEDS ORDERED: METF-440 GT (08:08)
[2020-11-01] MEDS ORDERED: ASPI-992 GT (08:08)
[2020-11-01] MEDS ORDERED: CRAN3875 GT (08:08)
[2020-11-01] MEDS ORDERED: INSU100V3 SQ (08:08)
[2020-11-01] MEDS ORDERED: NUT.237L31 GT (08:08)
[2020-11-01] MEDS ORDERED: TRAM50TA2 GT (08:08)
[2020-11-01] MEDS ORDERED: CLON0.2T GT (08:08)
[2020-11-01] MEDS ORDERED: DOCU50LI GT (08:08)
[2020-11-01] MEDS: ZINC SULFATE 220 MG CAPSULE GT SCH (08:42)
[2020-11-01] MEDS: ASCORBIC ACID 500 MG TABLET GT SCH (08:42)
[2020-11-01] MEDS: DOCUSATE SODIUM LIQ 100 MG/10 ML UDC GT SCH ×2 (08:42→17:21)
[2020-11-01] MEDS: LACTULOSE 10 G/15 ML UDC (PYXIS) GT SCH ×2 (08:42→17:24)
[2020-11-01] MEDS: ASPIRIN 325 MG TABLET GT SCH (08:42)
[2020-11-01] MEDS: FAMOTIDINE (20 MG) 20 MG TABLET GT SCH (08:42)
[2020-11-01] MEDS: PROSOURCE / PROSTAT (PYXIS) 30 ML UDC GT SCH (08:43)
[2020-11-01] MEDS: CHLORHEXIDINE GLUCONATE 15 ML UDC MM SCH ×2 (08:45→17:21)
[2020-11-01] MEDS: HEPARIN SODIUM, PORCINE 5000 UNITS/1 ML VIAL SQ SCH ×2 (08:45→17:23)
--- NOTE | 2020-11-01 10:06 | NUR ---
WOUND CARE CONSULT: REVIEWED CHART, NURSING DOCUMENTATION AND PHOTOS WHICH INDICATE MULTIPLE WOUNDS, PRESENT ON ADMISSION. DR CONTRERAS AND DR NOLEN NOTIFIED OF SURGICAL/DPM CONSULT REQUESTS. RECOMMENDATIONS MADE FOR SKIN PROTECTION. DISCUSSED WITH NURSING STAFF. PT IS ON VEGA ISOFLEX LOW AIRLOSS BED. MD IN AGREEMENT WITH PLAN OF CARE.
[2020-11-01] MEDS ORDERED: Z GUARD REMEDY 2 OZ OINT TP PRN (10:30)
[2020-11-01] MEDS: Z GUARD REMEDY 2 OZ OINT TP SCH (10:33)
[2020-11-01] MEDS: PIPERACILLIN /TAZOBACTAM 3.375 G in IV D5W 50 ML IV SCH ×3 (11:22→23:04)
[2020-11-01] MEDS: INSULIN REGULAR, HUMAN 100 UNIT/ML 3 ML VIAL SQ PRN ×3 (11:35→23:45)
--- NOTE | 2020-11-01 11:36 | NUR ---
RN NOTES; BS TAKEN AT 129. NO INSULIN NEEDED PER SLIDING SCALE
[2020-11-01] MEDS: METOPROLOL TARTRATE 50 MG TABLET PO SCH ×3 (11:38→17:22)
[2020-11-01] MEDS: hydrALAZINE HCL 25 MG TABLET PO SCH ×3 (11:39→17:22)
[2020-11-01 12:00] VITALS: BP 148/69
[2020-11-01] MEDS: VANCOMYCIN 1.25 GM in IV D5W 250 ML IV SCH ×2 (12:13→23:56)
[2020-11-01] MEDS: DILTIAZEM HCL 30 MG TABLET PO SCH ×2 (12:16→17:21)
[2020-11-01 16:00] VITALS: BP 134/72
--- NOTE | 2020-11-01 17:14 | NUR ---
RN NOTES B/S TAKEN 124. NO INSULIN NEEDED PER SLIDING SCALE.
--- NOTE | 2020-11-01 18:19 | NUR ---
RN CLOSING NOTES; PT RESTING IN SUPINE POS. ALERT AND NON VERBAL. PT HAD EGD PROCEDURE DONE EARLY AFTERNOON. PT CAME BACK IN STABLE CONDITION. RESUME ALL ORDERS PRIOR TO PROCEDURE. PT HAS Aliya VARGAS TO BE RENEWED AT MIDNIGHT. RAC #20 NS@75ML/HR. PATENT WITH NO SIGNS OF INFILTRATION. PT KEPT CLEAN, DRY, AND COMFORTABLE WITH CALL LIGHT WITHIN REACH. BED LOCKED IN LOWEST POSITION, WITH SIDE RAILS UP. ENDORSED TO HEALTHCARE ADMINISTRATION INTERNSHIP RN IN STABLE CONDITION. Addendum: 11/01/20 at 1828 by ULYSSES GRIGGS RN RN NOTES; DISREGARD NOTE. WRONG PATIENT.
--- NOTE | 2020-11-01 18:28 | NUR ---
RN CLOSING NOTES; PT CAME IN WITH A DX OF SEPSIS. PT IS AWAKE, OBTUNDED. BILATERAL UPPER EXTREMITY EDEMA NOTED. PODIATRY CONSULT DONE, CONTINUE WITH BETADINE AND DRESSING. WOUND CARE DONE AND TOLERATED WELL. WOUND CONSULT DONE. ARTERIAL DOPPLER TO LOWER EXTREMITY DONE. R HAND #20 1/2@75ML/HR, FLUSHED AND PATENT. PT TOLERATED ALL MEDS. PT KEPT CLEAN, DRY, AND COMFORTABLE. ENDORSED TO ANIMAL TRAINER SUPERVISOR NURSE IN STABLE CONDITION.
--- NOTE | 2020-11-01 19:46 | NUR ---
RN OPENING NOTES RECEIVED PT IN BED, OBTUNDED. EDEMA NOTED BUE. PT ON CARTAGENA, PATENT WITH YELLOW COLOR URINE DRAINING TO GRAVITY. PT ON TRACH# P8 TV 600 AC 16 FIO2 40 PEEP 5; TOLERATING SETTINGS WELL WITH NO S/S OF RESP. DISTRESS NOTED. MULTIPLE SKIN WOUNDS DOCUMENTED IN NURSING FLOWSHEET. G TUBE PRESENT FLUSHED AND AUSCULTATED FOR POSITIVE PLACEMENT WITH NO RESIDUAL NOTED. TUBE FEEDING RUNNING GLUCERNA 1.5 @80ML/HR CONTINUOS. IV ACCESS NOTED ON (R) HAND #20 FLUSHED AND PATENT WITH CLEAN AND INTACT DRESSING. IV RUNNING 1/2 NS @75ML/HR. NO S/S OF PAIN NOTED. NO ACUTE DISTRESS NOTED AT THIS TIME.
[2020-11-01 20:00] VITALS: BP 140/75
--- NOTE | 2020-11-01 23:46 | NUR ---
RN NOTE POC GLUCOSE TEST COMPLETED, 123 MG/DL. NO INSULIN COVERAGE NEEDED PER SLIDING SCALE
[2020-11-01] MEDS: DILTIAZEM HCL 30 MG TABLET GT SCH (23:56)
[2020-11-02] VITALS (14 sets, daily range): BP systolic 118–154; BP diastolic 45–79
[2020-11-02] MEDS: GLUCERNA 1.2 1,000 ML BOTTLE GT PRN ×2 (01:07→15:31)
[2020-11-02] MEDS: PIPERACILLIN /TAZOBACTAM 3.375 G in IV D5W 50 ML IV SCH ×3 (05:28→19:14)
[2020-11-02] MEDS: BLOOD SUGAR DIAGNOSTIC 1 EACH STRIP IN SCH ×4 (05:40→23:36)
[2020-11-02] MEDS: INSULIN REGULAR, HUMAN 100 UNIT/ML 3 ML VIAL SQ PRN ×2 (05:41→23:37)
[2020-11-02] MEDS: DILTIAZEM HCL 30 MG TABLET GT SCH ×4 (05:43→23:36)
--- NOTE | 2020-11-02 06:18 | NUR ---
RN NOTE POC GLUCOSE TEST COMPLETED, 107 MG/DL. NO INSULIN COVERAGE NEEDED PER SLIDING SCALE
--- NOTE | 2020-11-02 06:32 | NUR ---
RN CLOSING NOTES PATIENT IN BED, OBTUNDED. EDEMA NOTED BUE +3. PT ON CARTAGENA, PATENT WITH ROSANNA COLORED URINE DRAINING TO GRAVITY. PT ON TRACH# P8 TV 600 AC 16 FIO2 40 PEEP 5; TOLERATING SETTINGS WELL WITH NO S/S OF RESP. DISTRESS OR SOB NOTED. MULTIPLE SKIN WOUNDS DOCUMENTED IN NURSING FLOWSHEET.WOUND CARE COMPLETED ORDERED. TURNING AND REPOSITIONING DONE Q2H. STRICT OFFLOADING OF HEELS. G TUBE PRESENT FLUSHED AND AUSCULTATED FOR POSITIVE PLACEMENT WITH NO RESIDUAL NOTED. GLUCERNA 1.2 RUNNING @80ML/HR CONTINUOS. IV ACCESS NOTED ON (R) HAND #20 FLUSHED AND PATENT WITH CLEAN AND INTACT DRESSING. IV RUNNING 1/2 NS @75ML/HR. BATCH FREEZER OPERATOR UNABLE TO DRAW MORNING LABS, STATES SHE WILL HAVE ANOTHER BATCH FREEZER OPERATOR ATTEMPT IN DAY SHIFT. WILL ENDORSE TO MORNING SHIFT POSSIBLE NEED FOR MIDLINE. PATIENT KEPT CLEAN AND DRY. ALL NEEDS AND ORDERS MET THROUGHOUT SHIFT. NO S/S OF PAIN NOTED. NO ACUTE DISTRESS NOTED AT THIS TIME. WILL ENDORSE TO MORNING SHIFT RN
--- NOTE | 2020-11-02 07:58 | NUR ---
RT Pt received trached on mechanical ventilation with noted settings. BVM and spare trach by bedside. No SOB or respiratory distress noted. Addendum: 11/02/20 at 1615 by NEGAR GRAYSON RT Amended: Links added.
--- NOTE | 2020-11-02 08:15 | NUR ---
TELE NURSE OPENING NOTE RECEIVE REPORT PICKED EDGE SEWING MACHINE OPERATOR NURSE. UPON INITIAL ASSESSMENT, PATIENT IS COMFORTABLE WITH NO SIGN OF DISTRESS. PATIENT IS ON A VENT WITH SATURATING AT 100%. PROVIDE MORNING CARE. PUT BED IN THE LOWEST POSITION WITH 3 SIDE RAIL UP AND HEAD OF THE BED ELEVATED. IV IS INTACT. CARTAGENA IS IN PLACE. WILL CONTINUE TO MONITOR.
[2020-11-02 08:47] LABS: BASOPHILS % (AUTO) 0.3 % (0.0-2.0); EOSINOPHILS % (AUTO) 2.6 % (0.0-6.0); HEMATOCRIT 21 % (39-51); LYMPHOCYTES # (AUTO) 1.3 K/uL (0.8-4.8); LYMPHOCYTES % (AUTO) 10.1 % (20.0-44.0); MEAN CORPUSCULAR HGB CONC 31 g/dl (31.0-36.0); MEAN CORPUSCULAR VOLUME 82 fL (80-96); MONOCYTES # (AUTO) 0.9 K/uL (0.1-1.30); PLATELET COUNT (AUTO) 575 K/uL (150-450); WHITE BLOOD COUNT (AUTO) 12.5 K/uL (4.3-11.0)
[2020-11-02 08:59] LABS: HEMOGLOBIN 6.3 g/dL (13.5-17.5)
[2020-11-02 09:00] LABS: CALCIUM, SERUM 7.9 mg/dL (8.5-10.1); CREATININE 0.6 mg/dL (0.6-1.3); POTASSIUM 3.7 mmol/L (3.5-5.1)
[2020-11-02] MEDS ORDERED: CLONIDINE HCL 0.2MG/24H PTWK 1 EA PATCH TD SCH (09:00)
[2020-11-02] MEDS: DOCUSATE SODIUM LIQ 100 MG/10 ML UDC GT SCH ×2 (09:00→16:39)
[2020-11-02] MEDS: CHLORHEXIDINE GLUCONATE 15 ML UDC MM SCH ×2 (09:00→16:39)
[2020-11-02] MEDS: ASCORBIC ACID 500 MG TABLET GT SCH (09:00)
[2020-11-02] MEDS: FAMOTIDINE (20 MG) 20 MG TABLET GT SCH (09:00)
[2020-11-02] MEDS: PROSOURCE / PROSTAT (PYXIS) 30 ML UDC GT SCH (09:00)
[2020-11-02] MEDS: HEPARIN SODIUM, PORCINE 5000 UNITS/1 ML VIAL SQ SCH (09:00)
[2020-11-02] MEDS: LACTULOSE 10 G/15 ML UDC (PYXIS) GT SCH ×2 (09:00→16:39)
[2020-11-02] MEDS: METOPROLOL TARTRATE 50 MG TABLET PO SCH ×3 (09:01→16:39)
[2020-11-02] MEDS: ZINC SULFATE 220 MG CAPSULE GT SCH (09:03)
[2020-11-02] MEDS: hydrALAZINE HCL 25 MG TABLET PO SCH ×3 (09:03→16:38)
[2020-11-02] MEDS: Z GUARD REMEDY 2 OZ OINT TP SCH (09:15)
[2020-11-02] MEDS: ASPIRIN 325 MG TABLET GT SCH (09:40)
--- NOTE | 2020-11-02 09:43 | NUR ---
television cameraman note per dr wynn ok to give 2 units prbc hg 6.3 ok to hold heparin
--- NOTE | 2020-11-02 10:23 | NUR ---
manager telemarketing note called josé vick ok to give blood transfusion for patient, telephone consent done
--- NOTE | 2020-11-02 10:36 | NUR ---
telegraph installer note dr wynn notified that on tele monitor sr with pvc stated its ok patient has history of pvc ,will cont to monitor
[2020-11-02 10:53] LABS: BAND % (MANUAL) 1 % (0.0-5.0); EOSINOPHILS % (MANUAL) 2 % (0-4); LYMPHOCYTES % (MANUAL) 11 % (16-48); MONOCYTES % (MANUAL) 5 % (0-11.0); NEUTROPHILS % (MANUAL) 81 (42-76)
[2020-11-02] MEDS: DAKINS QUARTER STRENGTH (0.125%) 480 ML BOTTLE TOP SCH (12:13)
[2020-11-02] MEDS: VANCOMYCIN 1.25 GM in IV D5W 250 ML IV SCH (12:52)
--- NOTE | 2020-11-02 12:58 | NUR ---
CERTIFIED PESTICIDE APPLICATOR NOTE DR AVILA MASSOTHERAPIST SPOKE WITH DAUGHTER WALLY, WANTS TO DISCUSES ABOUT COMFORT MEASURE, CALLED LUCIA PET STYLIST, STATED THAT WILL CALL WALLY WILL F\U
--- NOTE | 2020-11-02 15:30 | NUR ---
ERECTION SHOP SUPERVISOR NOTE MID LINE INSERTED BY PICC LINE NURSE,ON LT UPPER ARM
--- NOTE | 2020-11-02 15:43 | NUR ---
TELE NURSE NOTE PRBC WAS STARTED. VITAL SIGNS WITHIN NORMAL LIMITS. NO SIGNS OF ADVERSE REACTION. PATIENT REMAIN STABLE. WILL CONTINUE TO MONITOR.
--- NOTE | 2020-11-02 17:19 | NUR ---
TELE NURSE NOTE. UNABLE TO GIVE ANTIBIOTIC (ZOSYN) AT THIS TIME. PATIENT IS RECEIVING BLOOD PRODUCT (PRBC).
--- NOTE | 2020-11-02 18:23 | NUR ---
TELE NURSE CLOSING NOTE. PATIENT WAS STABLE THROUGH OUT THE SHIFT. SHOWS NO SIGN OF DISTRESS. ALL MEDS WAS GIVEN. BED SHEET WAS CHANGED. PATIENT WAS REPOSITION ACCORDING TO FACILITY POLICY. PRBC WAS GIVEN WITH NO SIGN OF ADVERSE REACTION. BED IS AT LOWEST POSITION WITH 3 SIDE RAIL UP. PROVIDE COMFORT MEASURES. WILL CONTINUE TO MONITOR AND ENDORSE TO ON COMING NURSE.
--- NOTE | 2020-11-02 18:41 | NUR ---
TELE NURSE NOTE PRBC ADMINISTRATION FINISHED. NO ADVERSE REACTION NOTED. ADMINISTRATION STARTED AT RIGHT HAND IV 20G. PICC LINE NURSE WAS ABLE TO PLACE MID LINE ON LEFT UPPER ARM. PRBC WAS THEN SWITCH TO MID LINE FOR A MORE RELIABLE ADMINISTRATION. WILL CONTINUE TO MONITOR AND ENDORSE TO ON COMING NURSE.
--- NOTE | 2020-11-02 19:47 | NUR ---
RN OPENING NOTES RECEIVED PT IN BED, OBTUNDED. EDEMA NOTED BUE. PT ON CARTAGENA, PATENT WITH YELLOW COLOR URINE DRAINING TO GRAVITY. PT ON TRACH# P8 TV 600 AC 16 FIO2 40 PEEP 5; TOLERATING SETTINGS WELL WITH NO S/S OF RESP. DISTRESS NOTED. MULTIPLE SKIN WOUNDS DOCUMENTED IN NURSING FLOWSHEET. G TUBE PRESENT FLUSHED AND AUSCULTATED FOR POSITIVE PLACEMENT WITH NO RESIDUAL NOTED. TUBE FEEDING RUNNING GLUCERNA 1.2 @80ML/HR CONTINUOS. IV ACCESS NOTED ON (R) HAND #20 AND (L) UA MIDLINE BOTH FLUSHED AND PATENT WITH CLEAN AND INTACT DRESSING. IV RUNNING 1/2 NS @75ML/HR. ONE UNIT OF PRBC TRANSFUSED BY MORNING NURSE AND ANOTHER UNIT TO BE TRANSFUSED TONIGHT ONCE READY IN BLOOD BANK. NO S/S OF PAIN NOTED. NO ACUTE DISTRESS NOTED AT THIS TIME.
--- NOTE | 2020-11-02 22:00 | NUR ---
RN NOTE POC GLUCOSE TEST COMPLETED, LEVEL OF 123 MG/DL. NO INSULIN COVERAGE NEEDED PER SLIDING SCALE
--- NOTE | 2020-11-02 22:43 | NUR ---
TERRESTRIAL ECOLOGIST NOTE PRBC BLOOD TRANSFUSION BEGUN AT [address] MATTSON ORDERS, SECOND UNIT PT IS RECEIVING TODAY. VITAL SIGNS WNL. NO S/S OF TRANSFUSION REACTION NOTED.
[2020-11-03] VITALS (8 sets, daily range): BP systolic 140–166; BP diastolic 63–88
[2020-11-03] MEDS: PIPERACILLIN /TAZOBACTAM 3.375 G in IV D5W 50 ML IV SCH ×4 (01:10→17:06)
[2020-11-03] MEDS: VANCOMYCIN 1.25 GM in IV D5W 250 ML IV SCH ×2 (01:29→12:51)
[2020-11-03] MEDS: GLUCERNA 1.2 1,000 ML BOTTLE GT PRN (04:20)
[2020-11-03] MEDS: DILTIAZEM HCL 30 MG TABLET GT SCH ×3 (05:20→17:11)
[2020-11-03] MEDS: BLOOD SUGAR DIAGNOSTIC 1 EACH STRIP IN SCH ×3 (05:42→17:19)
--- NOTE | 2020-11-03 05:42 | NUR ---
RN NOTE POC GLUCOSE TEST COMPLETED, LEVEL OF 103 MG/DL. NO INSULIN COVERAGE NEEDED PER SLIDING SCALE
--- NOTE | 2020-11-03 06:33 | NUR ---
RN CLOSING NOTES PATIENT IN BED, OBTUNDED. EDEMA NOTED BUE +3. PT ON CARTAGENA, PATENT WITH ROSANNA COLORED URINE DRAINING TO GRAVITY. PT ON TRACH# P8 TV 600 AC 16 FIO2 40 PEEP 5; TOLERATING SETTINGS WELL WITH NO S/S OF RESP. DISTRESS OR SOB NOTED. MULTIPLE SKIN WOUNDS DOCUMENTED IN NURSING FLOWSHEET. WOUND CARE COMPLETED ORDERED. TURNING AND REPOSITIONING DONE Q2H. STRICT OFFLOADING OF HEELS. G TUBE PRESENT FLUSHED AND AUSCULTATED FOR POSITIVE PLACEMENT WITH 5 ML RESIDUAL NOTED. GLUCERNA 1.2 RUNNING @80ML/HR CONTINUOS. IV ACCESS NOTED ON (R) HAND #20 AND (L) UA MIDLINE BOTH FLUSHED AND PATENT WITH CLEAN AND INTACT DRESSING. IV RUNNING 1/2 NS @75ML/HR. ONE UNIT OF PRBC TRANSFUSED, NO S/S OF ADVERSE REACTION NOTED AND PT. TOLERATED WELL. PATIENT KEPT CLEAN AND DRY. ALL NEEDS AND ORDERS MET THROUGHOUT SHIFT. PENDING WOUND DEBRIDEMENT TODAY, CONSENT IN PT. CHART. NO S/S OF PAIN NOTED. NO ACUTE DISTRESS NOTED AT THIS TIME. WILL ENDORSE TO MORNING SHIFT RN
[2020-11-03 07:00] LABS: CALCIUM, SERUM 8.1 mg/dL (8.5-10.1); CREATININE 0.6 mg/dL (0.6-1.3); POTASSIUM 3.8 mmol/L (3.5-5.1)
--- NOTE | 2020-11-03 07:43 | NUR ---
TELE NURSE OPENING NOTE RECEIVE REPORT FROM ROUTE DRIVER SALESPERSON NURSE. PATIENT SEEM WELL RESTED AND COMFORTABLE UPON MORNING ASSESSMENT. PATIENT IS ON VENTILATOR WITH OXYGEN SATURATION AT 100%. PROVIDE COMFORT MEASURE. BED IS IN LOWEST POSITION WITH 3 SIDE RAIL UP. CALL LIGHT WITHIN REACH. WILL CONTINUE TO MONITOR THROUGH OUT THE SHIFT.
[2020-11-03 08:26] LABS: BASOPHILS % (AUTO) 0.3 % (0.0-2.0); HEMATOCRIT 29 % (39-51); HEMOGLOBIN 8.9 g/dL (13.5-17.5); LYMPHOCYTES # (AUTO) 1.5 K/uL (0.8-4.8); LYMPHOCYTES % (AUTO) 10.9 % (20.0-44.0); MEAN CORPUSCULAR HGB CONC 31 g/dl (31.0-36.0); MEAN CORPUSCULAR VOLUME 83 fL (80-96); MONOCYTES # (AUTO) 1.1 K/uL (0.1-1.30); MONOCYTES % (AUTO) 7.6 % (2.0-12.0); NEUTROPHILS # (AUTO) 11.1 K/uL (1.8-8.9); NEUTROPHILS % (AUTO) 79.2 % (43.0-81.0); PLATELET COUNT (AUTO) 598 K/uL (150-450); RED BLOOD CELL COUNT(AUTO) 3.47 MIL/uL (4.5-6.0)
[2020-11-03] MEDS: CHLORHEXIDINE GLUCONATE 15 ML UDC MM SCH ×2 (09:00→16:35)
[2020-11-03] MEDS: DOCUSATE SODIUM LIQ 100 MG/10 ML UDC GT SCH ×2 (09:00→16:35)
[2020-11-03] MEDS: LACTULOSE 10 G/15 ML UDC (PYXIS) GT SCH ×2 (09:00→16:35)
[2020-11-03] MEDS: ASCORBIC ACID 500 MG TABLET GT SCH (09:00)
[2020-11-03] MEDS: ASPIRIN 325 MG TABLET GT SCH (09:00)
[2020-11-03] MEDS: FAMOTIDINE (20 MG) 20 MG TABLET GT SCH (09:01)
[2020-11-03] MEDS: hydrALAZINE HCL 25 MG TABLET PO SCH ×3 (09:02→16:36)
[2020-11-03] MEDS: METOPROLOL TARTRATE 50 MG TABLET PO SCH ×3 (09:02→16:36)
[2020-11-03] MEDS: INSULIN REGULAR, HUMAN 100 UNIT/ML 3 ML VIAL SQ PRN ×2 (09:07→12:10)
[2020-11-03] MEDS: DAKINS QUARTER STRENGTH (0.125%) 480 ML BOTTLE TOP SCH (09:20)
[2020-11-03] MEDS: Z GUARD REMEDY 2 OZ OINT TP SCH (09:24)
[2020-11-03] MEDS: ZINC SULFATE 220 MG CAPSULE GT SCH (09:24)
[2020-11-03] MEDS: PROSOURCE / PROSTAT (PYXIS) 30 ML UDC GT SCH (09:26)
[2020-11-03] MEDS: IV 1/2NS 1000 ML 1,000 ML IV PRN (09:46)
--- NOTE | 2020-11-03 14:50 | NUR ---
TELE NURSE NOTE PATIENT IS READY TO BE DISCHARGE TO SNF. ALL ROUTINE CARE WAS PROVIDED. BED SHEET CHANGED AND REPOSITION PER FACILITY PROTOCOL. SACRAL WOUND CARE WAS PROVIDED AND DRESSING CHANGED. ORAL AND TRACH SUCTION PROVIDE NEEDED. PATIENT IS STABLE AND COMFORTABLE WITH NO SIGN OF DISTRESS. BED IN LOWEST POSITION WITH 3 RAIL UP. WILL CONTINUE TO MONITOR.
--- NOTE | 2020-11-03 16:20 | NUR ---
TELE NURSE NOTE. PATIENT WILL BE DISCHARGE TO SNF FACILITY. REPORT WAS GIVEN TO ARISTIDES (NURSE AT [facility]). DAUGHTER NICOLAS BOYLE IS ALSO AWARE OF PATIENT BEING DISCHARGE. AMBULANCE CREW WILL ARRIVE AROUND 1999. PATIENT REMAIN STABLE WITH NO SIGN OF DISTRESS. WILL CONTINUE TO MONITOR. Addendum: 11/03/20 at 1834 by JOHN MAURICE RN ARISTIDES (NURSE FROM [facility])
--- NOTE | 2020-11-03 18:34 | NUR ---
TELE NURSE NOTE. PATIENT WILL BE DISCHARGE TO SNF FACILITY. REPORT WAS GIVEN TO ARISTIDES (NURSE AT [facility]). DAUGHTER NICOLAS BOYLE IS ALSO AWARE OF PATIENT BEING DISCHARGE. AMBULANCE CREW WILL ARRIVE AROUND 1999. UNABLE TO TAKE PICTURE OF SACRAL WOUND. PATIENT HEMODYNAMICALLY UNSTABLE WHEN TURN. PROVIDE COMFORT MEASURES CLEAN AND CHANGE SHEETS. PATIENT REMAIN STABLE WITH NO SIGN OF DISTRESS. WILL CONTINUE TO MONITOR. WILL ENDORSE TO ON COMING NURSE.
--- NOTE | 2020-11-03 19:30 | NUR ---
RN NOTE RECEIVED PATIENT IN BED. OBTUNDED. ON MECHANICAL VENT PORT[place] 6, AC 16 TV 600 FIO2 40 PEEP5. RESPIRATIONS ARE EVEN AND UNLABORED. NO S/S SOB NOTED. NO S/S PAIN. IN NO APPARENT DISTRESS. PATIENT IS CURRENTLY OFF TELE MONITOR. IV ACCESS IN RIGHT HAND AND JOSSIE MINDLINE RUNNING 1/2@75ML/HR. GTUBE IS PRESENT, RESIDUAL 10CC, FEEDING RUUNING GLUCERNA @80ML/HR. CARTAGENA CAATHETER IS PRESENT, DRAINING TO GRAVITY, URINE IS YELLOW. BED IS LOW AND LOCKED, HOB ELEVATED IN SEMI FOWLERS, SIDE RIALS UP X3, CALL LIGHT Vertical CircuitsIN REACH. WILL CONTINUE TO MONITOR UNTIL AMBULANCE ARRIVES.
--- NOTE | 2020-11-03 21:47 | NUR ---
HOP PICKER NOTE PATIENT BEING DISCHARGED TO [facility]. OBTUNDED. REMAINS ON MECHANICAL VENT , NO CHANGES IN SETTINGS. NO RESP DISTRESS. NO PAIN. NO DISTRESS. REMOVED RIGHT HAND IV AND JOSSIE MIDLINE MAINTAINED FOR IV ABX. GTUBE FLUSHED AND CLAMPED. CARTAGENA CATHETER MAINTAINED AND DRAINING TO GRAVITY. PATIENT TRANSFERRED TO [facility] WITH NO INJURIES. DAY DEVI LARKIN REPORTED TO HAVE ALREADY GAVE FACILITY REPORT, INFORMED FAMILY OF [place], REMOVED TELE, TOOK DC PHOTOS PER PROTOCOL, SIGNED BELONING AND HAS COMPLETED DC PAPER WORK. NICKEL PLANT OPERATOR GIVEN EXIT CARE AND REPORT.
== END 2020-11-03 21:48 | disposition hospice, home (50) | DRG 853 ==
LOC: ER 20:31 → TELE1 11-01 02:11
PROVIDERS: ADMIT Internal Medicine; ATTEND Internal Medicine
PROC: 5A1945Z Respiratory Ventilation, 24-96 Consecutive Hours (ICD-10-PCS; principal; 2020-11-01)
PROC: 30233N1 Transfusion of Nonautologous Red Blood Cells into Peripheral Vein, Percutaneous Approach (ICD-10-PCS; 2020-11-02)
PROC: 05H633Z Insertion of Infusion Device into Left Subclavian Vein, Percutaneous Approach (ICD-10-PCS; 2020-11-02)
PROC: B547ZZA Ultrasonography of Left Subclavian Vein, Guidance (ICD-10-PCS; 2020-11-02)
PROC: 0KBP0ZZ Excision of Left Hip Muscle, Open Approach (ICD-10-PCS; 2020-11-03)
PROC: 0KBN0ZZ Excision of Right Hip Muscle, Open Approach (ICD-10-PCS; 2020-11-03)
DX: A41.1 Sepsis due to other specified staphylococcus (principal); L89.154 Pressure ulcer of sacral region, stage 4; J18.9 Pneumonia, unspecified organism; G83.5 Locked-in state; I96 Gangrene, not elsewhere classified; G93.1 Anoxic brain damage, not elsewhere classified; J96.10 Chronic respiratory failure, unspecified whether with hypoxia or hypercapnia; N39.0 Urinary tract infection, site not specified; M62.82 Rhabdomyolysis; E11.52 Type 2 diabetes mellitus with diabetic peripheral angiopathy with gangrene; E87.2 Acidosis; J98.11 Atelectasis; Z99.11 Dependence on respirator [ventilator] status; R40.3 Persistent vegetative state; L97.419 Non-pressure chronic ulcer of right heel and midfoot with unspecified severity; L97.429 Non-pressure chronic ulcer of left heel and midfoot with unspecified severity; M86.8X7 Other osteomyelitis, ankle and foot; Z86.73 Personal history of transient ischemic attack (TIA), and cerebral infarction without residual deficits; Z93.0 Tracheostomy status; E11.42 Type 2 diabetes mellitus with diabetic polyneuropathy; I10 Essential (primary) hypertension; E11.621 Type 2 diabetes mellitus with foot ulcer; E78.5 Hyperlipidemia, unspecified; Z74.01 Bed confinement status; Z79.899 Other long term (current) drug therapy; Z87.891 Personal history of nicotine dependence; Z93.1 Gastrostomy status; R13.10 Dysphagia, unspecified; D64.9 Anemia, unspecified; Z79.4 Long term (current) use of insulin; E11.69 Type 2 diabetes mellitus with other specified complication; Z20.822 Contact with and (suspected) exposure to COVID-19
CPT/HCPCS: 31720; 36410; 36415; 71045-TC; 73630-TC; 80048-TC; 80076-TC; 80202-TC; 81001; 82550-TC; 82962-TC; 83605-TC; 83880; 84484-TC; 85025-TC; 85730-TC; 86850-TC; 87040-TC; 87081-TC; 94002; 94002-TC; 94003-TC; 94760-TC; 94762-TC; 94799-TC; A6253; A6403; A7526; G0378; J1644; J1815; J2543; J3370; J3490; J7030; J7040; J7050; J7060; P9016; Q0162; U0003